=== PATIENT | male | born 1995 | race Caucasian/White ===

== ENCOUNTER 2021-10-29 12:33 | Emergency (ER) | payer OTHER, SELFPAY ==
[2021-10-29] VITALS (29 sets, daily range): BP systolic 101–146; BP diastolic 50–105; PULSE 90–130; RESP 14–27; TEMP 36.6; O2SAT 97–100
--- NOTE | 2021-10-29 13:08 | ED.ALCOHOL ---
HPI - Alcohol General Chief Complaint: Alcohol Stated Complaint: n/v Time Seen by Provider: 10/29/21 12:44 Source: patient, family and RN notes reviewed Mode of arrival: ambulatory Limitations: no limitations History of Present Illness HPI narrative: 26-year-old male presented to the emergency department for evaluation of nausea and vomiting after having excessive alcohol last night. Patient states he rarely drinks alcohol but last night had approximately 64 ounces of beer and other mixed drinks. Patient states he began developing nausea and vomiting and does have some epigastric burning. Patient denies any lower abdominal pain. Patient also reports he does have suicidal thoughts. Patient's he has had these previously but states he has no intent to act on them. Patient did make the statement I was feeling so sick I thought of killing myself, but I would not have done it. Patient denied any plan, and denied any intent of acting on these thoughts. Related Data Allergies Allergy/AdvReac Type Severity Reaction Status Date / Time Penicillins Allergy Rash Verified 10/29/21 12:45 Review of Systems Review of Systems: CONSTITUTIONAL: Denies fever, chills, or sweats. EYES: Denies visual changes, redness, or discharge. ENT: Denies rhinorrhea, congestion, sore throat, or otalgia. CARDIOVASCULAR: Denies chest pain, palpitations, or edema. RESPIRATORY: Denies cough or dyspnea. GASTROINTESTINAL: See HPI GENITOURINARY: Denies dysuria or hematuria. SKIN: Denies rash or itching. MUSCULOSKELETAL: Denies back pain, joint pain, or myalgia. NEUROLOGIC: Denies headache, numbness, or weakness. PSYCHIATRIC: Does have anxiety and depression All systems reviewed & are unremarkable except as noted in HPI and below Exam Narrative: APPEARANCE: Well appearing, no pain, no distress, well-nourished. HEAD: normocephalic, atraumatic. EYES: PERRLA/EOMI, conjunctivae clear. NOSE: Normal no drainage THROAT: Pharynx clear, no exudate. NECK: Supple. No adenopathy, no masses. RESPIRATORY: Airway patent, respirations nonlabored. Clear to auscultation bilaterally, no rales, rhonchi, wheezing. CARDIOVASCULAR: Regular rate and rhythm without murmurs rubs or gallops. ABDOMINAL: Soft, nontender, nondistended, normal bowel sounds MUSCULOSKELETAL: Moves all extremities. Strength/ROM intact, No edema, No calf tenderness. NEURO: Alert. Cranial nerves II through XII intact. Grossly intact SKIN: Warm, dry. Normal Color PSYCHIATRIC: Normal affect/mood. Course Reevaluation(s) Reevaluation #1: Patient is medically cleared to be evaluated by the crisis counselor. Patient is also medically cleared for inpatient psychiatric placement as needed. Patient was evaluated by the crisis counselor and was deemed safe to go home with a safety agreement. Patient symptoms have improved and patient is tolerating p.o. Vital Signs Vital signs: Vital Signs Temperature 97.8 F 10/29/21 12:38 Pulse Rate 98 10/29/21 12:38 Respiratory Rate 20 10/29/21 12:38 Blood Pressure 116/50 L 10/29/21 12:38 Pulse Oximetry 100 10/29/21 12:38 Temperature 97.8 F 10/29/21 12:38 Pulse Rate 114 H 10/29/21 19:00 Respiratory Rate 18 10/29/21 19:00 Blood Pressure 101/85 10/29/21 19:00 Pulse Oximetry 100 10/29/21 19:00 MDM - Alcohol Lab Data Attestation: I reviewed the patient's lab results. Result diagrams: 10/29/21 12:55 10/29/21 12:55 Labs: Lab Results 10/29/21 10/29/21 10/29/21 Range/Units 12:55 12:55 12:55 WBC 23.3 H (4.5-10.0) K/mm3 RBC 5.04 (4.6-6.20) M/mm3 Hgb 15.9 (14.0-18.0) g/dL Hct 46.0 (42.0-52.0) % MCV 91.3 (80-100) fl MCH 31.5 (26-34) pg MCHC 34.6 (32-36) g/dl RDW 11.9 (11.5-14.5) % Plt Count 284 (150-375) k/mm3 MPV 11.0 H (7.4-10.4) fl Immature Gran % (Auto) 0.5 (0-0.5) % Neut % (Auto) 85.0 H (45.5-73.1) % Lymph % (Auto) 7.8 L (18.3-44.2) % Lane % (Au
[2021-10-29 13:10] LABS: Basophils Absolute Auto 0.1 K/mm3 (0.0-0.1); Basophils Percent Auto 0.4 % (0.2-1.2); Hemoglobin 15.9 g/dL (14.0-18.0); Immature Granulocyte Absolute 0.11 K/mm3 (0.00-0.031); Immature Granulocyte Percent A 0.5 % (0-0.5); Lymphocytes Absolute Auto 1.82 K/mm3 (0.9-3.2); Lymphocytes Percent Auto 7.8 % (18.3-44.2); Mean Corpuscular HGB Conc 34.6 g/dl (32-36); Mean Corpuscular Hemoglobin 31.5 pg (26-34); Mean Corpuscular Volume 91.3 fl (80-100); Monocytes Absolute Auto 1.5 K/mm3 (0.1-0.6); Monocytes Percent Auto 6.3 % (2.6-8.5); Neutrophils Absolute Auto 19.8 K/mm3 (1.3-6.7); Platelet Count Result 284 k/mm3 (150-375); Red Blood Count 5.04 M/mm3 (4.6-6.20); Red Cell Distribution Width 11.9 % (11.5-14.5); White Blood Count 23.3 K/mm3 (4.5-10.0)
[2021-10-29 13:26] LABS: Amphetamine Screen Urine Negative (Negative); Barbiturate Screen Urine Negative (Negative); Benzodiazepines Screen Urine Negative (Negative); Cannabinoid Screen Urine Negative (Negative); Cocaine Screen Urine Negative (Negative); Methadone Screen Urine Negative (Negative); Opiate Screen Urine Negative (Negative); Phencyclidine Screen Urine Negative (Negative)
[2021-10-29 13:28] LABS: Albumin Level 5.6 g/dL (3.5-5.1); Alkaline Phosphatase 105 U/L (38-126); Anion Gap 25 mmol/L (8-16); Aspartate Amino Transferase 53 U/L (17-59); Bilirubin,Total 0.5 mg/dL (0.2-1.3); Blood Urea Nitrogen 22 mg/dL (9-20); Calcium 9.8 mg/dL (8.4-10.2); Carbon Dioxide 11 mmol/L (22-30); Chloride 105 mmol/L (98-107); Estimated CRCL calculation 91 ml/min; Estimated Glomerular Filt Rate > 60; Glucose 84 mg/dL (65-110); Lipase 58 U/L (23-300); Sodium 141 mmol/L (137-145)
[2021-10-29 13:31] LABS: Alanine Aminotransferase 53 U/L (4-50)
[2021-10-29 13:45] LABS: Acetaminophen < 10 ug/mL (10-30); Ethanol < 10 mg/dL (<10); Salicylate < 1.0 mg/dL (2-20)
[2021-10-29 13:56] LABS: Thyroid Stimulating Hormone 0.798 uIU/mL (0.465-4.680)
[2021-10-29] MEDS: SODIUM CHLORIDE 0.9% IV 1,000 ML 999 ML IV CONT ×2 (14:13→15:58)
[2021-10-29] MEDS: METOCLOPRAMIDE HCL INJ 10 MG/2 ML VIAL IV PUSH (14:14)
--- NOTE | 2021-10-29 14:17 | PC.NURSE ---
Per Dr. Guerra, he does not require patient to have a sitter at this time.
[2021-10-29 14:34] LABS: Appearance Urine Clear (Clear); Bilirubin Urine Negative (Negative); Blood Urine Negative (Negative); Color Urine Yellow (Yellow); Glucose Urine UA Negative (Negative); Ketones Urine 4+ mg/dL (Negative); Leukocyte Esterase Ur Negative LEU/UL (Negative); Nitrate Urine Negative (Negative); Protein Urine 1+ mg/dL (Negative); Specific Grav Ur >= 1.030 (1.001-1.035); Urobilinogen Urine 0.2 mg/dL (<2.0); pH Urine 5.5 (5.0-9.0)
[2021-10-29 14:43] LABS: Add Urine Microscopic? YES; Mucus Urine Rare /lpf; RBC Urine 0-2 /hpf (0-2); WBC Urine 0-3 /hpf
[2021-10-29 14:55] LABS: Magnesium 1.8 mg/dL (1.6-2.3)
--- NOTE | 2021-10-29 16:03 | PC.NURSE ---
Crisis called regarding PT. PT currently watching tv in room and watching his phone. Denies SI at the moment. PT pleasant and cooperative.
--- NOTE | 2021-10-29 17:49 | PC.NURSE ---
pt AT BEDSIDE. pt STATES HE DOES NOT HAVE A PLAN TO COMMIT HIMSELF AND CURRENTLY DOES NOT HAVE THOUGHTS OF HURTING HIMSELF.
== END 2021-10-29 19:18 | disposition home or self-care (01) ==
PROVIDERS: Emergency Provider Emergency Medicine
DX: F10.120 Alcohol abuse with intoxication, uncomplicated (principal); Y90.0 Blood alcohol level of less than 20 mg/100 ml; F32.89 Other specified depressive episodes
CPT/HCPCS: 36415; 80053; 80307; 81001; 83690; 83735; 84443; 85025; 96361; 96374; 99284; J2765; J7030

== ENCOUNTER 2024-09-13 12:55 | Emergency (ER) | payer OTHER, SELFPAY ==
--- NOTE | ~2024-09-13 | XR_ITS ---
XR hand LT min 3V Ordering provider: Dominique Patricia PA-C History: . 1st digit dog bite, SWELLING AND PAIN . Comparison: None. FINDINGS: BONES: No acute fracture or dislocation. JOINT SPACES: Well maintained. SOFT TISSUES: Soft tissue swelling in the thenar and hypothenar eminences. IMPRESSION: No acute osseous abnormality left hand. Reviewed, dictated and finalized at location A.
[2024-09-13 13:05] VITALS: BP 118/76; PULSE 76; RESP 18; TEMP 36.6; O2SAT 100
--- OUTSIDE RECORDS SUMMARY | 2024-09-13 13:30 | XMS_ITS | Clinical Summary ---
Author Organization [facility] Care Team Providers Care Twist Maker Name Role Phone Unavailable Primary Care Provider Unavailabl e Social History Tobacco Use Types Packs/Day Years Used Date Smoking Tobacco: Never Assessed Sex and Gender Information Value Date Recorded Sex Assigned at Not on file Legal Sex Male 1:59 PM [employer] Gender Identity Not on file Sexual Orientation Not on file Plan of Treatment Health Maintenance Due Date Last Done Comments Hepatitis C Virus (HCV) Screening 1996 TdaP Immunization 1996 Hepatitis B Immunization (1 of 3 - 19+ 3-dose series) 02/16/2015 Influenza Immunization (#1) 2024 SARS-COV-2 Immunization ( - 2023- season) 2024 Respiratory Syncytial Virus (RSV) Immunization (Adult) (1 - 1-dose 75+ series) 02/16/2071 Meningococcal Immunization (ACWY) Aged Out No longer eligible based on patient's age to complete this topic Pneumococcal Immunization Combined Aged Out No longer eligible based on patient's age to complete this topic Rotavirus Immunization Aged Out No lo nger eligible based on patient's age to complete this topic
--- OUTSIDE RECORDS SUMMARY | 2024-09-13 13:30 | XMS_ITS | Continuity of Care Document ---
Author Name [facility] Organization [facility] Care Team Providers Care Microsoft Exchange Architect Name Role Phone [facility] Unavailable Unavailable Problems Combined list of problems from Department of Defense and Veterans Affairs facilities. It does not include entries that were removed or entered in error. Problem Status Onset Date Problem Type Date of Resolution Comments Source Preoperative state Active 5 Diagnosis 005- [facility] Full examination performed Active 4 Diagnosis 0055C- [facility] Tinea pedis Active 4 Diagnosis 0055C- [facility] Pain of left calf Active 4 Diagnosis 0055C- [facility] Injury of left Achilles tendon Active 4 Diagnosis 0055C- [facility] Acute rupture of Achilles tendon Active 4 Diagnosis 005- [facility] Pain in calf Active 4 Diagnosis 005- [facility] Generalized anxiety disorder Active 4 Diagnosis 0055C- [facility] Regular astigmatism, bilateral Active 4 Diagnosis 005- [facility] Myopia, bilateral Active 4 Diagnosis 0055C- [facility] Myopia Active Condition Unknown Organization Regular astigmatism, bilateral Active Condition - [facility] Generalized anxiety disorder Active Condition 005- [facility] Strain of other muscle(s) and tendon(s) of posterior muscle group at lower leg level, left leg, sequela Active Condition - [facility] Medications Combined list of outpatient medications from Department of Defense and Veterans Affairs facilities.Medications provided include 1) outpatient medications from the last 15 months, and 2) patient-reported medications. Medication Details Route Status Patient Instructions Prescription Expires Prescription Number Last Dispense Date Ordering Provider Order Date Order Qty Source acetaminoph en 325 mg oral tablet 2 tab(s), Oral, every 6 hr, PRN pain or fever, # 50 tab(s), 0 total refill(s ), Acute, 01/24/24 10:33:10 AM CDT, Pharmacy : [facility] Oral (given by mouth) Discont inued 01/24/20242023 50.0 0055C-[address] [place], [place] [address]Trevor Tatum acetaminoph en 500 mg oral tablet 2 tab(s), Oral, every 6 hr, PRN pain or fever, # 100 tab(s), 0 total refill(s ), Acute, 03/25/24 12:00:00 AM CDT, Pharmacy : [facility] #[id number] Oral (given by mouth) Complet ed 03/25/20242023 100.0 [facility] Daily-Bing Men's Formula oral tablet Oral, Daily, 0 total refill(s ), Maintena nce Oral (given by mouth) Ordered 2023 [facility] escitalopra m 10 mg oral tablet TAKE ONE AND ONE-HALF TABLETS BY MOUTH DAILY, # 135 EA, 1 total refill(s ), Acute Discont inued 01/27/2023 3 2022 135.0 Ambulat ory Pharmac y escitalopra m 10 mg oral tablet TAKE ONE AND ONE-HALF TABLETS BY MOUTH DAILY, Oral, Daily, Take 1.5 tab daily for daily dose of Lexapro 15mg daily, # 135 EA, 3 total refill(s ), Maintena nce, Pharmacy : [facility] Oral (given by mouth) Discont inued 03/11/2024 4 2023 135.0 0055C-[address] [place] [address] Rc escitalopra m 5 mg oral tablet 30 tab(s), 0 total refill(s ), Soft Stop Complet ed 12/15/20222022 0055C-[address] [place], [place] [address]Trevor Tatum ibuprofen 600 mg oral tablet 1 tab(s), Oral, every 6 hr, # 40 tab(s), 0 total refill(s ), Acute, 01/24/24 10:33:10 AM CDT, Pharmacy : [facility] Oral (given by mouth) Discont inued 01/24/20242023 40.0 [address]55C[facility] DONNA [facility]atum ibuprofen 600 mg oral tablet 1 tab(s), Oral, every 6 hr, # 40 tab(s), 0 total refill(s ), Acute, 03/25/24 12:00:00 AM CDT, Pharmacy : [facility] #[id number] Oral (given by mouth) Complet ed 03/25/20242023 40.0 0055C[facility] DONNA Tatum Lexapro 10 mg oral tablet See Instruct ions, TAKE ONE AND ONE-HALF TABLETS BY MOUTH DAILY, # 135 tab(s), 3 total refill(s ), Maintena nce, Pharmacy : [facility] #[id number] Ordered 2023 135.0 0055C[address] DONNA Tatum Lexapro 10 mg oral tablet See Instruct ions, TAKE ONE AND ONE-HALF TABLETS BY MOUTH DAILY, # 135 tab(s), 3 total refill(s ), Hard Stop, Pharmacy : [facility] Complet ed 06/17/2024 2023 135.0 0055C-[address] DONNA [facility]atum Allergies, Adverse Reactions, Alerts Combined list of allergies from Department of Defense and Veterans Affairs facilities. It does not include entries that were removed or entered in error. Substance Category Reaction Severity Reaction type Status Date Reported Comments Source penicillins Drug allergy Urticaria (Hives) Mild Active 5 hives/inf ant Ambulatory Pharmacy Immunizations Combined list of available immunizations from the Department of Defense and Veterans Affairs facilities. Immunization Series Date Given Administered By Site Reaction Lot Number CVX Code Drug Transplanter Status Comments Source influenza, injectable, quadrivalent- pf 2022 150 GlaxoSmithKli ne complet ed influenza , injectabl e, quadrival ent-pf 04/19/23 Given Ambulat ory Pharmac y influenza, injectable, quadrivalent- pf 2021 [id number] 150 GlaxoSmithKli ne complet ed influenza , injectabl e, quadrival ent-pf 05/26/22 Given Ambulat ory Pharmac y influenza, injectable, quadrivalent- pf 2021 [id number] 150 GlaxoSmithKli ne complet ed influenza , injectabl e, quadrival ent-pf 05/26/22 Given Ambulat ory Pharmac y influenza, injectable, quadrivalent 2020 [id number] 158 GlaxoSmithKli ne complet ed influenza , injectabl e, quadrival ent 04/06/21 Given Ambulat ory Pharmac y influenza, injectable, quadrivalent 2020 [id number] 158 GlaxoSmithKli ne complet ed influenza , injectabl e, quadrival ent 04/06/21 Given Ambulat ory Pharmac y COVID Vaccine Moderna 2020 [id number] 207 complet ed COVID Vaccine Moderna 11/14/20 Given Ambulat ory Pharmac y COVID Vaccine Moderna 2020 [id number] 207 complet ed COVID Vaccine Moderna 11/14/20 Given Ambulat ory Pharmac y COVID Vaccine Moderna 2020 [id number] 207 complet ed COVID Vaccine Moderna 10/17/20 Given Ambulat ory Pharmac y COVID Vaccine Moderna 2020 [id number] 207 complet ed COVID Vaccine Moderna 10/17/20 Given Ambulat ory Pharmac y tuberculin purified protein derivative 2020 96 complet ed tuberculi n purified protein derivativ e 07/27/20 Given Ambulat ory Pharmac y tuberculin purified protein derivative 2020 96 complet ed tuberculi n purified protein derivativ e 07/27/20 Given Ambulat ory Pharmac y tuberculin purified protein derivative 2020 [id number] 96 complet ed tuberculi n purified protein derivativ e 07/24/20 Given Ambulat ory Pharmac y tuberculin purified protein derivative 2020 SAMANTHAMROMP ALSKI [id number] 96 complet ed Result Comment: Route: Unknown Manufactu rer: OTH ([facility]) 0055C-[facility] tuberculin purified protein derivative 2020 [id number] 96 sanofi pasteur complet ed tuberculi n purified protein derivativ e 07/06/20 Given Ambulat ory Pharmac y tuberculin purified protein derivative 2020 [id number] 96 sanofi pasteur complet ed tuberculi n purified protein derivativ e 07/06/20 Given Ambulat ory Pharmac y influenza virus vaccine, inactivated 2019 [id number] 88 Seqirus complet ed influenza virus vaccine, inactivat ed 04/24/20 Given Ambulat ory Pharmac y influenza virus vaccine, inactivated 2019 [id number] 88 Seqirus complet ed influenza virus vaccine, inactivat ed 04/24/20 Given Ambulat ory Pharmac y influenza, injectable, quadrivalent- pf 2018 [id number] 150 Seqirus complet ed influenza , injectabl e, quadrival ent-pf 04/10/19 Given Ambulat ory Pharmac y influenza, injectable, quadrivalent- pf 2018 [id number] 150 Seqirus complet ed influenza , injectabl e, quadrival ent-pf 04/10/19 Given Ambulat ory Pharmac y influenza, injectable, quadrivalent- pf 2017 [id number] 150 GlaxoSmithKli ne complet ed influenza , injectabl e, quadrival ent-pf 03/27/18 Given Ambulat ory Pharmac y influenza, injectable, quadrivalent- pf 2017 [id number] 150 GlaxoSmithKli ne complet ed influenza , injectabl e, quadrival ent-pf 03/27/18 Given Ambulat ory Pharmac y anthrax vaccine 2017 [id number] 24 Emergent [employer]olutions complet ed anthrax vaccine 03/14/18 Given Ambulat ory Pharmac y anthrax vaccine 2017 [id number] 24 [employer] complet ed anthrax vaccine 03/14/18 Given Ambulat ory Pharmac y anthrax vaccine 2017 [id number] 24 [employer] complet ed anthrax vaccine 10/05/17 Given Ambulat ory Pharmac y anthrax vaccine 2017 [id number] 24 [employer] complet ed anthrax vaccine 10/05/17 Given Ambulat ory Pharmac y influenza, injectable, quadrivalent- pf 2016 [id number] 150 GlaxoSmithKli ne complet ed influenza , injectabl e, quadrival ent-pf 03/23/17 Given Ambulat ory Pharmac y influenza, injectable, quadrivalent- pf 2016 [id number] 150 GlaxoSmithKli ne complet ed influenza , injectabl e, quadrival ent-pf 03/23/17 Given Ambulat ory Pharmac y Human Papillomaviru s 9-valent vaccine 2016 [id number] 165 Merck [employer] B[employer]ul [employer] complet ed Human Papilloma virus 9-valent vaccine 11/15/16 Given Ambulat ory Pharmac y Human Papillomaviru s 9-valent vaccine 2016 [id number] 165 [employer] complet ed Human Papilloma virus 9-valent vaccine 11/15/16 Given Ambulat ory Pharmac y vaccinia (smallpox) vaccine 2016 VV03-01 9-C 75 sanofi pasteur complet ed vaccinia (smallpox ) vaccine 11/14/16 Given Ambulat ory Pharmac y vaccinia (smallpox) vaccine 2016 VV03-01 9-C 75 sanofi pasteur complet ed vaccinia (smallpox ) vaccine 11/14/16 Given Ambulat ory Pharmac y typhoid Vi capsular polysaccharid e vac 2016 [id number] 101 sanofi pasteur complet ed typhoid Vi capsular polysacch aride vac 11/11/16 Given Ambulat ory Pharmac y Gibraltarian Encephalitis IM 2016 [id number] 9E 134 Valneva complet ed Gibraltarian Encephali tis IM 11/11/16 Given Ambulat ory Pharmac y anthrax vaccine 2016 [id number] 24 Emergent [employer] complet ed anthrax vaccine 11/11/16 Given Ambulat ory Pharmac y typhoid Vi capsular polysaccharid e vac 2016 [id number] 101 sanofi pasteur complet ed typhoid Vi capsular polysacch aride vac 11/11/16 Given Ambulat ory Pharmac y anthrax vaccine 2016 [id number] 24 [employer] complet ed anthrax vaccine 11/11/16 Given Ambulat ory Pharmac y Gibraltarian Encephalitis IM 2016 [id number] 9E 134 Valneva complet ed Gibraltarian Encephali tis IM 11/11/16 Given Ambulat ory Pharmac y influenza, injectable, quadrivalent 2015 [id number] 158 GlaxoSmithKli ne complet ed influenza , injectabl e, quadrival ent 03/29/16 Given Ambulat ory Pharmac y influenza, injectable, quadrivalent 2015 [id number] 158 GlaxoSmithKli ne complet ed influenza , injectabl e, quadrival ent 03/29/16 Given Ambulat ory Pharmac y hepatitis A-hepatitis B vaccine 2015 [id number] 104 GlaxoSmithKli ne complet ed hepatitis A-hepatit is B vaccine 07/22/15 Given Ambulat ory Pharmac y hepatitis A-hepatitis B vaccine 2015 [id number] 104 GlaxoSmithKli ne complet ed hepatitis A-hepatit is B vaccine 07/22/15 Given Ambulat ory Pharmac y hepatitis A-hepatitis B vaccine 2015 [id number] 104 GlaxoSmithKli ne complet ed hepatitis A-hepatit is B vaccine 07/22/15 Given Ambulat ory Pharmac y influenza, seasonal, injectable-pf 2014 [id number] 140 GlaxoSmithKli ne complet ed influenza , seasonal, injectabl e-pf 04/03/15 Given Ambulat ory Pharmac y influenza, seasonal, injectable-pf 2014 [id number] 140 GlaxoSmithKli ne complet ed influenza , seasonal, injectabl e-pf 04/03/15 Given Ambulat ory Pharmac y hepatitis A-hepatitis B vaccine 2014 [id number] 104 GlaxoSmithKli ne complet ed hepatitis A-hepatit is B vaccine 01/12/15 Given Ambulat ory Pharmac y hepatitis A-hepatitis B vaccine 2014 [id number] 104 GlaxoSmithKli ne complet ed hepatitis A-hepatit is B vaccine 01/12/15 Given Ambulat ory Pharmac y hepatitis A-hepatitis B vaccine 2014 [id number] 104 GlaxoSmithKli ne complet ed hepatitis A-hepatit is B vaccine 12/03/14 Given Ambulat ory Pharmac y hepatitis A-hepatitis B vaccine 2014 [id number] 104 GlaxoSmithKli ne complet ed hepatitis A-hepatit is B vaccine 12/03/14 Given Ambulat ory Pharmac y hepatitis A-hepatitis B vaccine 2014 [id number] 104 GlaxoSmithKli ne complet ed hepatitis A-hepatit is B vaccine 12/03/14 Given Ambulat ory Pharmac y tetanus, diphtheria, acellular pertu is 2014 [id number] 115 GlaxoSmithKli ne complet ed tetanus, diphtheri a, acellular pertussis 11/27/14 Given Ambulat ory Pharmac y meningococcal A,C,Y,W-135 (MCV4P) 2014 [id number] 114 sanofi pasteur complet ed meningoco ccal A,C,Y,W-1 35 (MCV4P) 11/27/14 Given Ambulat ory Pharmac y influenza, injectable, quadrivalent- pf 2014 [id number] 150 GlaxoSmithKli ne complet ed influenza , injectabl e, quadrival ent-pf 11/27/14 Given Ambulat ory Pharmac y poliovirus vaccine, inactivated 2014 [id number] 10 sanofi pasteur complet ed polioviru s vaccine, inactivat ed 11/27/14 Given Ambulat ory Pharmac y adenovirus vaccine, live 2014 [id number] 7 143 Teva Pharmaceutica ls complet ed adenoviru s vaccine, live 11/27/14 Given Ambulat ory Pharmac y tetanus, diphtheria, acellular pertu is 2014 [id number] 115 GlaxoSmithKli ne complet ed tetanus, diphtheri a, acellular pertussis 11/27/14 Given Ambulat ory Pharmac y poliovirus vaccine, inactivated 2014 [id number] 10 sanofi pasteur complet ed polioviru s vaccine, inactivat ed 11/27/14 Given Ambulat ory Pharmac y influenza, injectable, quadrivalent- pf 2014 [id number] 150 GlaxoSmithKli ne complet ed influenza , injectabl e, quadrival ent-pf 11/27/14 Given Ambulat ory Pharmac y adenovirus vaccine, live 2014 [id number] 7 143 Teva Pharmaceutica ls complet ed adenoviru s vaccine, live 11/27/14 Given Ambulat ory Pharmac y meningococcal A,C,Y,W-135 (MCV4P) 2014 [id number] 114 sanofi pasteur complet ed meningoco ccal A,C,Y,W-1 35 (MCV4P) 11/27/14 Given Ambulat ory Pharmac y tuberculin purified protein derivative 2014 [id number] 96 sanofi pasteur complet ed tuberculi n purified protein derivativ e 11/27/14 Given Ambulat ory Pharmac y tuberculin purified protein derivative 2014 [id number] 96 sanofi pasteur complet ed tuberculi n purified protein derivativ e 11/27/14 Given Ambulat ory Pharmac y Results Combined list of recent chemistry, hematology and other laboratory results from Department of Defense and Veterans Affairs, ranging from 15 months to all on record, depending upon the facility. Order Name Results Value Reference Range Date Interpretation Specimen Comments Source Infectious Disease HIV-1/O/ 2 Non-Re active 1 ( 11:38 AM) 01/17 N Interpretive Data: INTERPRETATIO N: This method is a screening procedure for the detection of HIV p24 Antigen and Antibodies to HIV-1, including Group O, and/or HIV-2. NON-REACTIVE: HIV-1 antigen and HIV-1 / HIV-2 antibodies were not detected. No laboratory evidence of HIV infection. A negative test result does not exclude the possibility of exposure to or infection with HIV. HIV antibodies and/or p24 antigen may be undetectable in some stages of the infection and in some clinical conditions. If acute HIV infection is suspected, consider submitting another specimen to a reference laboratory for HIV-1 RNA. SCREEN REACTIVE - CONFIRMATION TO FOLLOW: Possible presence of HIV-1antibodi es, HIV-2 antibodies and/or HIV-1 p24 antigen. Specimen will reflex to the confirmation testing that fulfills the Center for Disease Control and Prevention's HIV diagnostic algorithm. Refer to [facility] Lab Guide for additional information: [email or web address] aspx Testing performed by [employer]. [id number] [facility] EPILAB Encounters Combined list of: 1) Encounters from Department of Veterans Affairs facilities going backup to the last 18 months, not all VA inpatient encounters are included; 2) Encounters from the Department of Defense facilities going backup to 280 months. Location Location Details Encounter Type Encounter Number Reason For Visit Attending Provider ADM Date DC Date Status [id number] Dis[facility] Disposition: Home or Self Care [id number] Discharge Disposition: Home or Self Care [facility] [id number] Regular astigma tism, maxime al,Myovidal sanchez, maxime Ortiz LBNGHIA 06/07 Discharge Disposition: Home or Self Care [address] [place] [address] [facility] [id number] Pain in unspeci fied lower leg,Str ain of unspeci fied Jonathan s tendon, initial encount er,Enco unter for general adult medical examina tion without abnorma l finding s,Tinea pedis,G enerali zed anxiety disorde r,Pain in left lower leg,Uns pecifie d injury of left Lawrence s tendon, initial enc[facility] Discharge Disposition: Home or Self Care [address] [place] [address] [facility] [id number] Encount er for other preproc edural examina tion JJ AVILA 08/15 Discharge Disposition: Home or Self Care [address] [place] [address] Procedures Combined list of: 1) Procedures from Department of Veterans Affairs facilities [facility], not all [place] non-surgical procedures are included; 2) All procedures from the Department of Defense facilities. Procedure Procedure Type Code Date Perfomer Comments [facility] Tonsillectomy and adenoidectomy; age 12 or over Tonsillectomy and adenoidectomy; age 12 or over [id number] 06/26/[id number] Social History Combined list of available smoking, tobacco, and other social history from Department of Defense and Veterans Affairs facilities. Social History Type Response Date Comment [facility] Sex Representation Male 08/30/2022 Unknow n Organization Tobacco Frequent/Daily expos ure to secondhand smoke in indoor/confined spaces No. Cigarette use: Former-cigarette user. Other Tobacco use: Never-other tobacco user (not cigarettes). Ambulatory Pharmacy Sexual Orientation Ambula tory Pharmacy Gender identity Ambulator y Pharmacy Assessment and Plan Combined list of future care activities from Department of Defense and Veterans Affairs facilities (e.g., assessment and plan notes, appointments, orders, and referrals). Additional future care activities may be listed in the Plan of Care section. Result Assessment and Plan Date Source Assessment and Plan Extracted from:Title : Optometry- CRS workup Author: JJ AREVALO OD, Optometry Date: 08/15/24 1. P reoperative state Patient appears to be good candidate for CRS. Discussed RBA of CRS with patient and explained procedures and performed all workup testing. Patient given a pplication to submit to surgical center of choice. Patient wanting to travel to [facility]. I nstructed to c ontact clinic a fter surgery to ensure profile, order meds if necessary, and schedule 1 month post-op. Patient acknowledges all, all questions answered. Instructed to remain out of CLs until surgery scheduled. If not a candidate at surgical site, maintain annual exams with optometry. Good ocular health today with dilation; pt educated on exam findings without further questions. ? 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 JJ AREVALO, Lt Col, OD [employer] [place], [place] Extracted from:Title: Virt Appt Author: [facility]AN [facility] Date: 06/17/24 1. 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 P ain in calf p reviously established with [facility] in [place] f or left calf pain DOI: 2016 per patient, had calf muscle tear, requires intermittent physical therapy 29yo male, SFS, calf muscle tear/Achilles tendon i njury, requires intermittent physical therapy. For continuity of care send to [facility] in [place], [place] A ddress: [phone] [facility] [address], [place] [address] . Eval/treat/follow. thanks. 3. A cute rupture of Achilles tendon 4. F ull examination performed p t requests lipid panel, brother has hyperlipidemia he will book virt appt t o review results Ordered: Lipid Panel 5. T inea pedis w ax/wane tinea pedis, ketoconazole controlls flare ups most of the time not currently in a flare up plan: OTC f oot powder, trial OTC terbinafine use until athletes foot resolves and then for 10 days after, d/c ketoconazole PRAP Disposition: continue with arming Aeromedical Disposition: n/a Tuan Vital, Capt, [employer], BS Aeromedical Physician [employer] [facility] [place], [place] Orders: escitalopram(Lexapro 10 mg oral tablet), See Instructions, TAKE ONE AND ONE-HALF TABLETS BY MOUTH DAILY, # 135 tab(s), 3 total refill(s), Maintenance, TAKE ONE AND ONE-HALF TABLETS BY MOUTH DAILY, Pharmacy: [facility] #[id number] [External Rx] Referral Request 2.0 - DoD Extracted from:Title: Optometry- CEE Author: JJ AREVALO, OD Date: 06/07/24 1. M yopia, bilateral S pectacle rx released today. Final rx = [facility]. Below glasses ordered in SRTS. Discussed adaptation time to new lenses and proper wear. Discussed 2 pair requirement (DOD).? Measurements of anatomical facial characteristics and laboratory specifications were taken for glasses and final adjustment was made to the visual axes and anatomical topography of the patient at patients request upon delivery. OD: -2.50-0.85c009 OS: -2.25-1.98z353 pd:59 [id number] New Contact lens rx given today. Discussed proper wear/care of lenses. Instructed hand washing, not sleeping/showering/swimming in lenses and correct solutions. Discussed improper wear can lead to permanent vision loss. Replacement time: 2 weeks Acuvue Oasys for Astigmatism 8.6/14.5 OD: -2.50-0.34t600 OIS: -2.50-0.72m983 Patient appears to be a good candidate for corneal refractive surgery. Patient was emailed the application, [facility] to return the paperwork once (s)he obtains CC authorization and complete forms. - Once finished, p t edu to retun to [facility]. Angie perry will be scheduled with provider for completion of testing to include pentacam and dilation. Pt needs to be out of Cls x 2 weeks prior to returning. A ll questions answered to include [employer] specific process and r/b/a of surgery. Good ocular health today undilated; pt educated on exam findings without further questions. Recommend dilated eye exam a t CRS workup. 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 JJ AREVALO, Lt Col, OD [employer], [place] 2. R egular astigmatism, bilateral Ordered: Determination Refractive State [id number]; 06/07/2024 10:27:00 LIME SLAKER ? Rx+Fitg C-Lens Supvj Crnl Lens Ou Xcpt Aphk [id number]; 06/07/2024 10:27:00 LIME SLAKER ? Fitting Spectacles Xcpt Aphakia Monofocal [id number]; 06/07/2024 10:27:00 LIME SLAKER ? 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 - SM states wakes every am and unable to eat firts thing in the am. Routine Health Maintenance: 1. Lipid profile: P rior lipids done. Date of lipid panel a nd LDL, HDL, Total = 07/06/2020, LDL: 69 HDL: 64 Total: 144 2. HgbA1c (Diabetes) screening: P rior HgbA1c done. Date of lab and HgbA1c= 11/30/2021, 4.9% 2. G eneralized anxiety disorder Lexapro 3. T innitus SM c/o ringing in the ears Laterality: B ilateral a lternates ears intermitently Able to perform occupational duties still: Y es Associated hearing loss N o Counseled on the importance of h earing protection and minimizing use of loud noise and/or headphones/ear buds Advised t o follow up in the clinic for further evaluation Advised to go to the ER if sudden worsening or any associated pain. Disposition: P FARAH Cleared PHA Type: Non-Fly Qualification: W orld Wide Qualified Profile: N one IMR Status: Green Waivers: None Arming Status: S ervice member arms Reviewed health services director's PHAQ and EHR for the past twelve months t o include r eported height, weight, current medical conditions and deployment related health problems, traumatic brain injury screening, m edications, allergies, i mmunizations, medical readiness laboratory tests and occupational health records. Completed screenings and provided patient education as appropriate. MHA completed in ASIMS and copied to this record. Child Life Specialist is aware of services available (911, [phone], One source, [facility], Conservation Worker, B , , embedded squadron resources, e mergency room, first shirt or others in wendi of command, etc) and how to contact them if needed. Child Life Specialist denies suicidal and homicidal ideation. Preventative services reviewed and discussed per age, race, and gender. Reviewed immunization history and assessed immunization status. Reviewed physical activity, s exual risk factors and previous STD testing date, including HIV. Reviewed readiness labs and occupational health examinations required. Compared medications reported by Child Life Specialist to active medication list in MHSG/JLV and any variances were reconciled. Time spent in pt care, counseling and reviewing chart was approximately 2 0min. Patient informed PHA complete and ASIMS updated. Any complaints or issues identified while conducting the PHA have been addressed and/or the health services director was instructed to return to their PCM for care. //SIGNED// MAJ Yves, [employer], BSC Aerospace Medicine PATrevorC, BHS/MPAS [facility] Phase 2 Medical Readiness Cell Extracted from:Title: Ambulatory Patient Education Author: LASHAUN WALTER PA Date: 12/15/22 Gastrocnemius Tear (Calf Strain) Gastrocnemius tear is an injury to the calf muscle. This injury may include overstretching of the muscle or a partial or complete tear. This is a common sports injury. Calf muscle tears usually occur near the back of the knee. This often causes sudden pain and muscle weakness. What are the causes? This condition is caused by forceful stretching or strain on the calf muscle. This usually happens when you forcefully push off of your foot. It may also happen if you forcefully straighten your knee while your foot is flat on the ground. What increases the risk? The following factors may make you more likely to develop this condition: # Being male and older than age 40. # Playing sports that involve: Quick increases in speed and changes of direction, such as tennis and soccer. Jumping, such as basketball. Running, especially uphill or on uneven ground. Treatment (Summarized from UptoDate) Initial Treatment: Most calf strains can take up to 3 # 16 weeks to heal, depending on severity. Physical Therapy can help with the recovery. We can put in a referral for you if desired. At any time, follow up for any new/worsening symptoms or if not improving. Goal is rest until you can walk without a limp. This may be with crutches, walking boot, and/or heel lifts. Ice the area 4x day for 20 minutes until swelling subsides. Motrin (ibuprofen) 200-800mg 3x day with meals (max of 2400mg/day). Tylenol (acetaminophen) 325mg 1-2 tabs every 6 hours as needed on top (max 8 tabs daily). o These medications can be picked up at our pharmacy without a prescription as they are available from our over the counter supply. Compression sleeve worn over the calf. Can use an Miguel Angel wrap instead of a compression sleeve. (Start the Miguel Angel wrap from the ankle side and wrap upward to the knee) At One Week (or sooner depending on progress): After a week, if possible stop using crutches, switch to the heel lifts instead. Continue wearing compression sleeve/miguel angel wrap with activity, and continue icing 4x day for 20mins until swelling subsides. Once you can walk without a limp, start taking a walk 3x day for 10 minutes at a time. Once you can perform a heel raise (standing on your bridge of your foot) on both legs without pain, start doing that regularly o 5-8 reps with knees bent, then repeating this with the knees straight o Gradually increase to perform 3 sets of 15 reps with knees straight, and then repeat it with knees bent. Ideally avoid stretching exercises during recovery as they can exacerbate the injury. Gentle massage and gentle non-weight bearing range of motion is okay. At Three Weeks (or sooner depending on progress): Start eccentric heel drops as described in the below table. o Hang your heel over an edge (stair or step), and flex your foot down (so you are doing a heel lift and standing on the ball of your foot). Then slowly lower the heel until the heel is below the edge of the step. Raise yourself back up using the healthy foot or hand railings. Once you can do these heel drop exercises well (3 sets for 15 reps on one leg) you can begin an easy run every other day on a level surface for 15-20 mins max per session. o Additionally, can also do bicycle or stationary bicycle activity. At Six Weeks (or sooner depending on progress): Continue running for longer times and distances, but still on a level surface. o Recommend only adding 5 minutes increase in running time per session during a given week and no more than 1 additional running day each week. Ex) Week one: Ran 3x week for 20 minutes, Week two: Ran 4x week for 25 minutes. o Continue performing heel raise exercises as described in the table. Typically can be up to 8 # 12 weeks for return to full sports activity. Continue using compression sleeves and heel lifts during activity for the first 3 months after returning to the activity. Then can use it afterwards as needed. 1. Eccentric heel drop description a. Stand with the heel of the affected foot beyond the edge of the step or platform with the foot plantar flexed. Slowly lower the heel, bringing the foot into dorsiflexion. b. Perform the exercise both with the knee straight (gastrocnemius) and with the knee bent 45 degrees (soleus). c. Avoid concentric exercise by raising the foot back to the plantar flexed starting position using the unaffected foot, and hands if a railing is available. 2. Number of exercises a. Perform 3 sets of 15 repetitions with straight knees, then 3 sets of 15 repetitions with bent knees. b. Perform this cycle twice daily (180 drops/day). c. Continue the program 7 days per week for 12 to 24 weeks. 3. Exercise progression a. The exercises must be uncomfortable; when heel drops are no longer painful add weight by using a backpack, dumbbells, or a weight machine. Deven's intensive rehabilitation of Achilles tendinopathy Orthopedics Muscle Strain A muscle strain, or pulled muscle, happens when a muscle is stretched beyond its normal length. This can tear some muscle fibers and cause pain. Usually, it takes 1 2 weeks to heal from a muscle strain. Full healing normally takes 5 6 weeks. What are the causes? This condition is caused when a sudden force is placed on a muscle and stretches it too far. This can happen with a fall, while lifting, or during sports. What increases the risk? You are more likely to develop a muscle strain if you are an athlete or you do a lot of physical activity. What are the signs or symptoms? Pain. Tenderness. Bruising. Swelling. Trouble using the muscle. How is this treated? This condition is first treated with RICHARDSON therapy. This involves: Protecting your muscle from being injured again. Resting your injured muscle. Icing your injured muscle. Putting pressure (compression) on your injured muscle. This may be done with a splint or elastic bandage. Raising (elevating) your injured muscle. Your doctor may also recommend medicine for pain. Follow these instructions at home: If you have a splint that can be taken off: Wear the splint as told by your doctor. Take it off only as told by your doctor. Check the skin around the splint every day. Tell your doctor if you see problems. Loosen the splint if your fingers or toes: Tingle. Become numb. Turn cold and blue. Keep the splint clean. If the splint is not waterproof: Do not let it get wet. Cover it with a watertight covering when you take a bath or a shower. Managing pain, stiffness, and swelling If told, put ice on your injured area. To do this: If you have a removable splint, take it off as told by your doctor. Put ice in a plastic bag. Place a towel between your skin and the bag. Leave the ice on for 20 minutes, 2 3 times a day. Take off the ice if your skin turns bright red. This is very important. If you cannot feel pain, heat, or cold, you have a greater risk of damage to the area. Move your fingers or toes often. Raise the injured area above the level of your heart while you are sitting or lying down. Wear an elastic bandage as told by your doctor. Make sure it is not too tight. General instructions Take [id number] and prescription medicines only as told by your doctor. This may include: Medicines for pain and swelling that are taken by mouth or put on the skin. Medicines to help relax your muscles. Limit your activity. Rest your injured muscle as told by your doctor. Your doctor may say that gentle movements are okay. If physical therapy was prescribed, do exercises as told by your doctor. Do not put pressure on any part of the splint until it is fully hardened. This may take many hours. Do not smoke or use any products that contain nicotine or tobacco. If you need help quitting, ask your doctor. Ask your doctor when it is safe to drive if you have a splint. Keep all follow-up visits. How is this prevented? Warm up before you exercise. This helps to prevent more muscle strains. Contact a doctor if: You have more pain or swelling in the injured area. Get help right away if: You have any of these problems in your injured area: Numbness. Tingling. Less strength than normal. Summary A muscle strain is an injury that happens when a muscle is stretched beyond normal length. This condition is first treated with RICHARDSON therapy. This includes protecting, resting, icing, adding pressure, and raising your injury. Limit your activity. Rest your injured muscle as told by your doctor. Your doctor may say that gentle movements are okay. Warm up before you exercise. This helps to prevent more muscle strains. This information is not intended to replace advice given to you by your health care provider. Make sure you discuss any questions you have with your health care provider. Document Revised: 08/30/2021 Document Reviewed: 08/30/2021 Advanced Circulatory Patient Education 2021 [employer] Future Appointments Appointment Date: 10/07/2024 11:00:00 AM Scheduled Provider: Location: [id number] Appointment Type: Dental Visit Appointment Date: 10/15/2024 07:00:00 AM Scheduled Provider: LIANNA RIDER Location: [id number] Appointment Type: OPHT FTR Appointment Date: 10/15/2024 08:30:00 AM Scheduled Provider: LILI JAMES MD Location: [id number] Appointment Type: OPHT GRP Appointment Date: 11/19/2024 08:00:00 AM Scheduled Provider: JJ AREVALO OD, Optometry Location: [id number] Appointment Type: OPTO PROC Future Scheduled TestsLaboratoryLipid Panel 06/17/24 09/13/2024 [facility] Assessment and Plan Extracted from:Title : Optometry- CRS workup Author: JJ AREVALO OD, Optometry Date: 08/15/24 1. P reoperative state Patient appears to be good candidate for CRS. Discussed RBA of CRS with patient and explained procedures and performed all workup testing. Patient given a pplication to submit to surgical center of choice. Patient wanting to travel to [facility]. I nstructed to c ontact clinic a fter surgery to ensure profile, order meds if necessary, and schedule 1 month post-op. Patient acknowledges all, all questions answered. Instructed to remain out of CLs until surgery scheduled. If not a candidate at surgical site, maintain annual exams with optometry. Good ocular health today with dilation; pt educated on exam findings without further questions. ? 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 JJ AREVALO, Col, OD [employer] [place], [place] Extracted from:Title: Virt Appt Author: TUAN VITAL APA-C Date: 06/17/24 1. 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 P ain in calf p reviously established with [facility] in [place] f or left calf pain DOI: 2017 per patient, had calf muscle tear, requires intermittent physical therapy 29yo male, SFS, calf muscle tear/Achilles tendon i njury, requires intermittent physical therapy. For continuity of care send to [facility] in [place], [place] A ddress: [address], [place] [address] . Eval/treat/follow. thanks. 3. A cute rupture of Achilles tendon 4. F ull examination performed p t requests lipid panel, brother has hyperlipidemia he will book virt appt t o review results Ordered: Lipid Panel 5. T inea pedis w ax/wane tinea pedis, ketoconazole controlls flare ups most of the time not currently in a flare up plan: OTC f oot powder, trial OTC terbinafine use until athletes foot resolves and then for 10 days after, d/c ketoconazole PRAP Disposition: continue with arming Aeromedical Disposition: n/a Tuan Vital, Capt, [facility], [facility] [place] Aeromedical Physician [employer] [facility] [place], [place] Orders: escitalopram(Lexapro 10 mg oral tablet), See Instructions, TAKE ONE AND ONE-HALF TABLETS BY MOUTH DAILY, # 135 tab(s), 3 total refill(s), Maintenance, TAKE ONE AND ONE-HALF TABLETS BY MOUTH DAILY, Pharmacy: [facility] #[id number] [External Rx] Referral Request 2.0 - DoD Extracted from:Title: Optometry- CEE Author: JJ AREVALO, OD Date: 06/07/24 1. M yopia, bilateral S pectacle rx released today. Final rx = Manifest. Below glasses ordered in SRTS. Discussed adaptation time to new lenses and proper wear. Discussed 2 pair requirement (DOD).? Measurements of anatomical facial characteristics and laboratory specifications were taken for glasses and final adjustment was made to the visual axes and anatomical topography of the patient at patients request upon delivery. OD: -2.50-0.61h069 OS: -2.25-1.06j745 pd:59 [id number] New Contact lens rx given today. Discussed proper wear/care of lenses. Instructed hand washing, not sleeping/showering/swimming in lenses and correct solutions. Discussed improper wear can lead to permanent vision loss. Replacement time: 2 weeks Acuvue Oasys for Astigmatism 8.6/14.5 OD: -2.50-0.15c488 OIS: -2.50-0.73c327 Patient appears to be a good candidate for corneal refractive surgery. Patient was emailed the application, edu to return the paperwork once (s)he obtains CC authorization and complete forms. - Once finished, p t edu to retun to [facility] [employer]. M vicky will be scheduled with provider for completion of testing to include pentacam and dilation. Pt needs to be out of Cls x 2 weeks prior to returning. A ll questions answered to include [employer] specific process and r/b/a of surgery. Good ocular health today undilated; pt educated on exam findings without further questions. Recommend dilated eye exam a t CRS workup. 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 JJ AREVALO, Lt Col, OD [employer], [place] 2. R egular astigmatism, bilateral Ordered: Determination Refractive State [id number]; 06/07/2024 10:27:00 LIME SLAKER ? Rx+Fitg C-Lens Supvj Crnl Lens Ou Xcpt Aphk [id number]; 06/07/2024 10:27:00 LIME SLAKER ? Fitting Spectacles Xcpt Aphakia Monofocal [id number]; 06/07/2024 10:27:00 LIME SLAKER ? Ophthalmological Medical Xm&Eval Compre New Pt 1/> Vst [id number]; 06/07/2024 10:27:00 LIME SLAKER End of Orders Extracted from:Title: virtual mrc2 mha/pha Author: SERGE CHILDERS APA-C Date: 01/08/24 1. 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 - SM states wakes every am and unable to eat firts thing in the am. Routine Health Maintenance: 1. Lipid profile: P rior lipids done. Date of lipid panel a nd LDL, HDL, Total = 07/06/2020, LDL: 69 HDL: 64 Total: 144 2. HgbA1c (Diabetes) screening: Vidal cain HgbA1c done. Date of lab and HgbA1c= 11/30/2021, 4.9% 2. G eneralized anxiety disorder Lexapro 3. T innitus SM c/o ringing in the ears Laterality: B ilateral a lternates ears intermitently Able to perform occupational duties still: Y es Associated hearing loss N o Counseled on the importance of h earing protection and minimizing use of loud noise and/or headphones/ear buds Advised t o follow up in the clinic for further evaluation Advised to go to the ER if sudden worsening or any associated pain. Disposition: P FARAH Cleared PHA Type: Non-Fly Qualification: W orld Wide Qualified Profile: N one IMR Status: Green Waivers: None Arming Status: S ervice member arms Reviewed health services director's PHAQ and EHR for the past twelve months t o include r eported height, weight, current medical conditions and deployment related health problems, traumatic brain injury screening, m edications, allergies, i mmunizations, medical readiness laboratory tests and occupational health records. Completed screenings and provided patient education as appropriate. MHA completed in ASIMS and copied to this record. Child Life Specialist is aware of services available ([phone], One source, [facility], Conservation Worker, B H, , embedded squadron resources, e mergency room, first shirt or others [facility], etc) and how to contact them if needed. Child Life Specialist denies suicidal and homicidal ideation. Preventative services reviewed and discussed per age, race, and gender. Reviewed immunization history and assessed immunization status. Reviewed physical activity, s exual risk factors and previous STD testing date, including HIV. Reviewed readiness labs and occupational health examinations required. Compared medications reported by Child Life Specialist to active medication list in MHSG/JLV and any variances were reconciled. Time spent in pt care, counseling and reviewing chart was approximately 2 0min. Patient informed PHA complete and ASIMS updated. Any complaints or issues identified while conducting the PHA have been addressed and/or the health services director was instructed to return to their PCM for care. //SIGNED// MAJ Yves, LUPE, BSC Aerospace Medicine PAHenri, BHS/MPAS [facility] Phase 2 Medical Readiness Cell Extracted from:Title: Ambulatory Patient Education Author: LASHAUN WALTER PA Date: 12/15/22 Gastrocnemius Tear (Calf Strain) Gastrocnemius tear is an injury to the calf muscle. This injury may include overstretching of the muscle or a partial or complete tear. This is a common sports injury. Calf muscle tears usually occur near the back of the knee. This often causes sudden pain and muscle weakness. What are the causes? This condition is caused by forceful stretching or strain on the calf muscle. This usually happens when you forcefully push off of your foot. It may also happen if you forcefully straighten your knee while your foot is flat on the ground. What increases the risk? The following factors may make you more likely to develop this condition: # Being male and older than age 40. # Playing sports that involve: Quick increases in speed and changes of direction, such as tennis and soccer. Jumping, such as basketball. Running, especially uphill or on uneven ground. Treatment (Summarized from UptoDate) Initial Treatment: Most calf strains can take up to 3 # 16 weeks to heal, depending on severity. Physical Therapy can help with the recovery. We can put in a referral for you if desired. At any time, follow up for any new/worsening symptoms or if not improving. Goal is rest until you can walk without a limp. This may be with crutches, walking boot, and/or heel lifts. Ice the area 4x day for 20 minutes until swelling subsides. Motrin (ibuprofen) 200-800mg 3x day with meals (max of 2400mg/day). Tylenol (acetaminophen) 325mg 1-2 tabs every 6 hours as needed on top (max 8 tabs daily). o These medications can be picked up at our pharmacy without a prescription as they are available from our over the counter supply. Compression sleeve worn over the calf. Can use an Miguel Angel wrap instead of a compression sleeve. (Start the Miguel Angel wrap from the ankle side and wrap upward to the knee) At One Week (or sooner depending on progress): After a week, if possible stop using crutches, switch to the heel lifts instead. Continue wearing compression sleeve/miguel angel wrap with activity, and continue icing 4x day for 20mins until swelling subsides. Once you can walk without a limp, start taking a walk 3x day for 10 minutes at a time. Once you can perform a heel raise (standing on your bridge of your foot) on both legs without pain, start doing that regularly o 5-8 reps with knees bent, then repeating this with the knees straight o Gradually increase to perform 3 sets of 15 reps with knees straight, and then repeat it with knees bent. Ideally avoid stretching exercises during recovery as they can exacerbate the injury. Gentle massage and gentle non-weight bearing range of motion is okay. At Three Weeks (or sooner depending on progress): Start eccentric heel drops as described in the below table. o Hang your heel over an edge (stair or step), and flex your foot down (so you are doing a heel lift and standing on the ball of your foot). Then slowly lower the heel until the heel is below the edge of the step. Raise yourself back up using the healthy foot or hand railings. Once you can do these heel drop exercises well (3 sets for 15 reps on one leg) you can begin an easy run every other day on a level surface for 15-20 mins max per session. o Additionally, can also do bicycle or stationary bicycle activity. At Six Weeks (or sooner depending on progress): Continue running for longer times and distances, but still on a level surface. o Recommend only adding 5 minutes increase in running time per session during a given week and no more than 1 additional running day each week. Ex) Week one: Ran 3x week for 20 minutes, Week two: Ran 4x week for 25 minutes. o Continue performing heel raise exercises as described in the table. Typically can be up to 8 # 12 weeks for return to full sports activity. Continue using compression sleeves and heel lifts during activity for the first 3 months after returning to the activity. Then can use it afterwards as needed. 1. Eccentric heel drop description a. Stand with the heel of the affected foot beyond the edge of the step or platform with the foot plantar flexed. Slowly lower the heel, bringing the foot into dorsiflexion. b. Perform the exercise both with the knee straight (gastrocnemius) and with the knee bent 45 degrees (soleus). c. Avoid concentric exercise by raising the foot back to the plantar flexed starting position using the unaffected foot, and hands if a railing is available. 2. Number of exercises a. Perform 3 sets of 15 repetitions with straight knees, then 3 sets of 15 repetitions with bent knees. b. Perform this cycle twice daily (180 drops/day). c. Continue the program 7 days per week for 12 to 24 weeks. 3. Exercise progression a. The exercises must be uncomfortable; when heel drops are no longer painful add weight by using a backpack, dumbbells, or a weight machine. Deven intensive rehabilitation of Achilles tendinopathy Orthopedics Muscle Strain A muscle strain, or pulled muscle, happens when a muscle is stretched beyond its normal length. This can tear some muscle fibers and cause pain. Usually, it takes 1 2 weeks to heal from a muscle strain. Full healing normally takes 5 6 weeks. What are the causes? This condition is caused when a sudden force is placed on a muscle and stretches it too far. This can happen with a fall, while lifting, or during sports. What increases the risk? You are more likely to develop a muscle strain if you are an athlete or you do a lot of physical activity. What are the signs or symptoms? Pain. Tenderness. Bruising. Swelling. Trouble using the muscle. How is this treated? This condition is first treated with RICHARDSON therapy. This involves: Protecting your muscle from being injured again. Resting your injured muscle. Icing your injured muscle. Putting pressure (compression) on your injured muscle. This may be done with a splint or elastic bandage. Raising (elevating) your injured muscle. Your doctor may also recommend medicine for pain. Follow these instructions at home: If you have a splint that can be taken off: Wear the splint as told by your doctor. Take it off only as told by your doctor. Check the skin around the splint every day. Tell your doctor if you see problems. Loosen the splint if your fingers or toes: Tingle. Become numb. Turn cold and blue. Keep the splint clean. If the splint is not waterproof: Do not let it get wet. Cover it with a watertight covering when you take a bath or a shower. Managing pain, stiffness, and swelling If told, put ice on your injured area. To do this: If you have a removable splint, take it off as told by your doctor. Put ice in a plastic bag. Place a towel between your skin and the bag. Leave the ice on for 20 minutes, 2 3 times a day. Take off the ice if your skin turns bright red. This is very important. If you cannot feel pain, heat, or cold, you have a greater risk of damage to the area. Move your fingers or toes often. Raise the injured area above the level of your heart while you are sitting or lying down. Wear an elastic bandage as told by your doctor. Make sure it is not too tight. General instructions Take fssz-plu-bktemzw and prescription medicines only as told by your doctor. This may include: Medicines for pain and swelling that are taken by mouth or put on the skin. Medicines to help relax your muscles. Limit your activity. Rest your injured muscle as told by your doctor. Your doctor may say that gentle movements are okay. If physical therapy was prescribed, do exercises as told by your doctor. Do not put pressure on any part of the splint until it is fully hardened. This may take many hours. Do not smoke or use any products that contain nicotine or tobacco. If you need help quitting, ask your doctor. Ask your doctor when it is safe to drive if you have a splint. Keep all follow-up visits. How is this prevented? Warm up before you exercise. This helps to prevent more muscle strains. Contact a doctor if: You have more pain or swelling in the injured area. Get help right away if: You have any of these problems in your injured area: Numbness. Tingling. Less strength than normal. Summary A muscle strain is an injury that happens when a muscle is stretched beyond normal length. This condition is first treated with RICHARDSON therapy. This includes protecting, resting, icing, adding pressure, and raising your injury. Limit your activity. Rest your injured muscle as told by your doctor. Your doctor may say that gentle movements are okay. Warm up before you exercise. This helps to prevent more muscle strains. This information is not intended to replace advice given to you by your health care provider. Make sure you discuss any questions you have with your health care provider. Document Revised: 08/30/2021 Document Reviewed: 08/30/2021 Advanced Circulatory Patient Education 2021 [employer] Future Appointments Appointment Date: 10/07/2024 11:00:00 AM Scheduled Provider: Location: [id number] Appointment Type: Dental Visit Appointment Date: 10/15/2024 07:00:00 AM Scheduled Provider: LIANNA RIDER Location: [id number] Appointment Type: OPHT FTR Appointment Date: 10/15/2024 08:30:00 AM Scheduled Provider: LILI JAMES MD Location: [id number] Appointment Type: OPHT GRP Appointment Date: 11/19/2024 08:00:00 AM Scheduled Provider: JJ AREVALO OD, Optometry Location: [id number] Appointment Type: OPTO PROC Future Scheduled TestsLaboratoryLipid Panel 06/17/24 09/13/[address] [place] [address] Assessment and Plan Extracted from:Title : Optometry- CRS workup Author: JJ AREVALO OD, Optometry Date: 08/15/24 1. P reoperative state Patient appears to be good candidate for CRS. Discussed RBA of CRS with patient and explained procedures and performed all workup testing. Patient given a pplication to submit to surgical center of choice. Patient wanting to travel to [facility]. I nstructed to c ontact clinic a fter surgery to ensure profile, order meds if necessary, and schedule 1 month post-op. Patient acknowledges all, all questions answered. Instructed to remain out of CLs until surgery scheduled. If not a candidate at surgical site, maintain annual exams with optometry. Good ocular health today with dilation; pt educated on exam findings without further questions. ? 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 JJ AREVALO, Lt Col, OD [employer] Operator EMERSON Bosch Extracted from:Title: Virt Appt Author: TUAN VITAL APA-C Date: 06/17/24 1. 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 P ain in calf p reviously established with [facility] in [place] f or left calf pain DOI: 2016 per patient, had calf muscle tear, requires intermittent physical therapy 29yo male, SFS, calf muscle tear/Achilles tendon i njury, requires intermittent physical therapy. For continuity of care send to [facility] in [place], [place] A ddress: [address], [place] [address] . Eval/treat/follow. thanks. 3. A cute rupture of Achilles tendon 4. F ull examination performed p t requests lipid panel, brother has hyperlipidemia he will book virt appt t o review results Ordered: Lipid Panel 5. T inea pedis w ax/wane tinea pedis, ketoconazole controlls flare ups most of the time not currently in a flare up plan: OTC f oot powder, trial OTC terbinafine use until athletes foot resolves and then for 10 days after, d/c ketoconazole PRAP Disposition: continue with arming Aeromedical Disposition: n/a Tuan Vital, Capt, [facility], [facility] [place] [employer] Physician [employer] [facility] [place], [place] Orders: escitalopram(Lexapro 10 mg oral tablet), See Instructions, TAKE ONE AND ONE-HALF TABLETS BY MOUTH DAILY, # 135 tab(s), 3 total refill(s), Maintenance, TAKE ONE AND ONE-HALF TABLETS BY MOUTH DAILY, Pharmacy: [id number] [External Rx] Referral Request 2.0 - DoD Extracted from:Title: Optometry- CEE Author: JJ AREVALO OD Date: 06/07/24 1. M yopia, bilateral S pectacle rx released today. Final rx = [facility]. Below glasses ordered in SRTS. Discussed adaptation time to new lenses and proper wear. Discussed 2 pair requirement (DOD).? Measurements of anatomical facial characteristics and laboratory specifications were taken for glasses and final adjustment was made to the visual axes and anatomical topography of the patient at patients request upon delivery. OD: -2.50-0.51e819 OS: -2.25-1.70m530 pd:59 [id number] New Contact lens rx given today. Discussed proper wear/care of lenses. Instructed hand washing, not sleeping/showering/swimming in lenses and correct solutions. Discussed improper wear can lead to permanent vision loss. Replacement time: 2 weeks Acuvue Oasys for Astigmatism 8.6/14.5 OD: -2.50-0.06y187 OIS: -2.50-0.64i593 Patient appears to be a good candidate for corneal refractive surgery. Patient was emailed the application, edu to return the paperwork once (s)he obtains CC authorization and complete forms. - Once finished, p t edu to retun to [facility]. Angie perry will be scheduled with provider for completion of testing to include pentacam and dilation. Pt needs to be out of Cls x 2 weeks prior to returning. A ll questions answered to include [employer] specific process and r/b/a of surgery. Good ocular health today undilated; pt educated on exam findings without further questions. Recommend dilated eye exam a t CRS workup. 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 JJ AREVALO, Lt Col, OD [employer] [place], [place] 2. R egular astigmatism, bilateral Ordered: Determination Refractive State [id number]; 06/07/2024 10:27:00 LIME SLAKER ? Rx+Fitg C-Lens Supvj Crnl Lens Ou Xcpt Aphk [id number]; 06/07/2024 10:27:00 LIME SLAKER ? Fitting Spectacles Xcpt Aphakia Monofocal [id number]; 06/07/2024 10:27:00 LIME SLAKER ? Ophthalmological Medical Xm&Eval Compre New Pt 1/> Vst [id number]; 06/07/2024 10:27:00 LIME SLAKER End of Orders Extracted from:Title: virtual mrc2 mha/pha Author: [employer]GE CHILDERS APA-C Date: 01/08/24 1. 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 - SM states wakes every am and unable to eat firts thing in the am. Routine Health Maintenance: 1. Lipid profile: P rior lipids done. Date of lipid panel a nd LDL, HDL, Total = 07/06/2020, LDL: 69 HDL: 64 Total: 144 2. HgbA1c (Diabetes) screening: P rior HgbA1c done. Date of lab and HgbA1c= 11/30/2021, 4.9% 2. G eneralized anxiety disorder Lexapro 3. T innitus SM c/o ringing in the ears Laterality: B ilateral a lternates ears intermitently Able to perform occupational duties still: Y es Associated hearing loss N o Counseled on the importance of h earing protection and minimizing use of loud noise and/or headphones/ear buds Advised t o follow up in the clinic for further evaluation Advised to go to the ER if sudden worsening or any associated pain. Disposition: P FARAH Cleared PHA Type: Non-Fly Qualification: W orld Wide Qualified Profile: N one IMR Status: Green Waivers: None Arming Status: S ervice member arms Reviewed health services director's PHAQ and EHR for the past twelve months t o include r eported height, weight, current medical conditions and deployment related health problems, traumatic brain injury screening, m edications, allergies, i mmunizations, medical readiness laboratory tests and occupational health records. Completed screenings and provided patient education as appropriate. MHA completed in [facility] and copied to this record. Child Life Specialist is aware of services available ([phone], One source, STEVE, , Cinthia Jacob, , embedded squadron resources, e mergency room, first shirt or others in c wendi of command, etc) and how to contact them if needed. Child Life Specialist denies suicidal and homicidal ideation. Preventative services reviewed and discussed per age, race, and gender. Reviewed immunization history and assessed immunization status. Reviewed physical activity, s exual risk factors and previous STD testing date, including HIV. Reviewed readiness labs and occupational health examinations required. Compared medications reported by Child Life Specialist to active medication list in MH/JLV and any variances were reconciled. Time spent in pt care, counseling and reviewing chart was approximately 2 0min. Patient informed PHA complete and ASIMS updated. Any complaints or issues identified while conducting the PHA have been addressed and/or the health services director was instructed to return to their PCM for care. //SIGNED// MAJ Yves, LUPE, BSC Aerospace Medicine PA-C, BHS/MPAS [facility] Phase 2 Medical Readiness Cell Extracted from:Title: Ambulatory Patient Education Author: LASHAUN WALTER PA Date: 12/15/22 Gastrocnemius Tear (Calf Strain) Gastrocnemius tear is an injury to the calf muscle. This injury may include overstretching of the muscle or a partial or complete tear. This is a common sports injury. Calf muscle tears usually occur near the back of the knee. This often causes sudden pain and muscle weakness. What are the causes? This condition is caused by forceful stretching or strain on the calf muscle. This usually happens when you forcefully push off of your foot. It may also happen if you forcefully straighten your knee while your foot is flat on the ground. What increases the risk? The following factors may make you more likely to develop this condition: # Being male and older than age 40. # Playing sports that involve: Quick increases in speed and changes of direction, such as tennis and soccer. Jumping, such as basketball. Running, especially uphill or on uneven ground. Treatment (Summarized from UptoDate) Initial Treatment: Most calf strains can take up to 3 # 16 weeks to heal, depending on severity. Physical Therapy can help with the recovery. We can put in a referral for you if desired. At any time, follow up for any new/worsening symptoms or if not improving. Goal is rest until you can walk without a limp. This may be with crutches, walking boot, and/or heel lifts. Ice the area 4x day for 20 minutes until swelling subsides. Motrin (ibuprofen) 200-800mg 3x day with meals (max of 2400mg/day). Tylenol (acetaminophen) 325mg 1-2 tabs every 6 hours as needed on top (max 8 tabs daily). o These medications can be picked up at our pharmacy without a prescription as they are available from our over the counter supply. Compression sleeve worn over the calf. Can use an Miguel Angel wrap instead of a compression sleeve. (Start the Miguel Angel wrap from the ankle side and wrap upward to the knee) At One Week (or sooner depending on progress): After a week, if possible stop using crutches, switch to the heel lifts instead. Continue wearing compression sleeve/miguel angel wrap with activity, and continue icing 4x day for 20mins until swelling subsides. Once you can walk without a limp, start taking a walk 3x day for 10 minutes at a time. Once you can perform a heel raise (standing on your bridge of your foot) on both legs without pain, start doing that regularly o 5-8 reps with knees bent, then repeating this with the knees straight o Gradually increase to perform 3 sets of 15 reps with knees straight, and then repeat it with knees bent. Ideally avoid stretching exercises during recovery as they can exacerbate the injury. Gentle massage and gentle non-weight bearing range of motion is okay. At Three Weeks (or sooner depending on progress): Start eccentric heel drops as described in the below table. o Hang your heel over an edge (stair or step), and flex your foot down (so you are doing a heel lift and standing on the ball of your foot). Then slowly lower the heel until the heel is below the edge of the step. Raise yourself back up using the healthy foot or hand railings. Once you can do these heel drop exercises well (3 sets for 15 reps on one leg) you can begin an easy run every other day on a level surface for 15-20 mins max per session. o Additionally, can also do bicycle or stationary bicycle activity. At Six Weeks (or sooner depending on progress): Continue running for longer times and distances, but still on a level surface. o Recommend only adding 5 minutes increase in running time per session during a given week and no more than 1 additional running day each week. Ex) Week one: Ran 3x week for 20 minutes, Week two: Ran 4x week for 25 minutes. o Continue performing heel raise exercises as described in the table. Typically can be up to 8 # 12 weeks for return to full sports activity. Continue using compression sleeves and heel lifts during activity for the first 3 months after returning to the activity. Then can use it afterwards as needed. 1. Eccentric heel drop description a. Stand with the heel of the affected foot beyond the edge of the step or platform with the foot plantar flexed. Slowly lower the heel, bringing the foot into dorsiflexion. b. Perform the exercise both with the knee straight (gastrocnemius) and with the knee bent 45 degrees (soleus). c. Avoid concentric exercise by raising the foot back to the plantar flexed starting position using the unaffected foot, and hands if a railing is available. 2. Number of exercises a. Perform 3 sets of 15 repetitions with straight knees, then 3 sets of 15 repetitions with bent knees. b. Perform this cycle twice daily (180 drops/day). c. Continue the program 7 days per week for 12 to 24 weeks. 3. Exercise progression a. The exercises must be uncomfortable; when heel drops are no longer painful add weight by using a backpack, dumbbells, or a weight machine. Deven's intensive rehabilitation of Achilles tendinopathy Orthopedics Muscle Strain A muscle strain, or pulled muscle, happens when a muscle is stretched beyond its normal length. This can tear some muscle fibers and cause pain. Usually, it takes 1 2 weeks to heal from a muscle strain. Full healing normally takes 5 6 weeks. What are the causes? This condition is caused when a sudden force is placed on a muscle and stretches it too far. This can happen with a fall, while lifting, or during sports. What increases the risk? You are more likely to develop a muscle strain if you are an athlete or you do a lot of physical activity. What are the signs or symptoms? Pain. Tenderness. Bruising. Swelling. Trouble using the muscle. How is this treated? This condition is first treated with RICHARDSON therapy. This involves: Protecting your muscle from being injured again. Resting your injured muscle. Icing your injured muscle. Putting pressure (compression) on your injured muscle. This may be done with a splint or elastic bandage. Raising (elevating) your injured muscle. Your doctor may also recommend medicine for pain. Follow these instructions at home: If you have a splint that can be taken off: Wear the splint as told by your doctor. Take it off only as told by your doctor. Check the skin around the splint every day. Tell your doctor if you see problems. Loosen the splint if your fingers or toes: Tingle. Become numb. Turn cold and blue. Keep the splint clean. If the splint is not waterproof: Do not let it get wet. Cover it with a watertight covering when you take a bath or a shower. Managing pain, stiffness, and swelling If told, put ice on your injured area. To do this: If you have a removable splint, take it off as told by your doctor. Put ice in a plastic bag. Place a towel between your skin and the bag. Leave the ice on for 20 minutes, 2 3 times a day. Take off the ice if your skin turns bright red. This is very important. If you cannot feel pain, heat, or cold, you have a greater risk of damage to the area. Move your fingers or toes often. Raise the injured area above the level of your heart while you are sitting or lying down. Wear an elastic bandage as told by your doctor. Make sure it is not too tight. General instructions Take fvuh-dkx-nmckdnb and prescription medicines only as told by your doctor. This may include: Medicines for pain and swelling that are taken by mouth or put on the skin. Medicines to help relax your muscles. Limit your activity. Rest your injured muscle as told by your doctor. Your doctor may say that gentle movements are okay. If physical therapy was prescribed, do exercises as told by your doctor. Do not put pressure on any part of the splint until it is fully hardened. This may take many hours. Do not smoke or use any products that contain nicotine or tobacco. If you need help quitting, ask your doctor. Ask your doctor when it is safe to drive if you have a splint. Keep all follow-up visits. How is this prevented? Warm up before you exercise. This helps to prevent more muscle strains. Contact a doctor if: You have more pain or swelling in the injured area. Get help right away if: You have any of these problems in your injured area: Numbness. Tingling. Less strength than normal. Summary A muscle strain is an injury that happens when a muscle is stretched beyond normal length. This condition is first treated with RICHARDSON therapy. This includes protecting, resting, icing, adding pressure, and raising your injury. Limit your activity. Rest your injured muscle as told by your doctor. Your doctor may say that gentle movements are okay. Warm up before you exercise. This helps to prevent more muscle strains. This information is not intended to replace advice given to you by your health care provider. Make sure you discuss any questions you have with your health care provider. Document Revised: 08/30/2021 Document Reviewed: 08/30/2021 Advanced Circulatory Patient Education 2021 [employer] Future Appointments Appointment Date: 10/07/2024 11:00:00 AM Scheduled Provider: Location: [id number] Appointment Type: Dental Visit Appointment Date: 10/15/2024 07:00:00 AM Scheduled Provider: LIANNA RIDER Location: [id number] Appointment Type: OPHT FTR Appointment Date: 10/15/2024 08:30:00 AM Scheduled Provider: LILI JAMES MD Location: [id number] Appointment Type: OPHT GRP Appointment Date: 11/19/2024 08:00:00 AM Scheduled Provider: JJ AREVALO OD, Optometry Location: [id number] Appointment Type: OPTO PROC Future Scheduled TestsLaboratoryLipid Panel 06/17/24 09/13/2024 Unknown Organization Functional Status Combined list of recent functional and cognitive assessments recorded at [facility] (VA[facility]VA Functional Forrest Measurement (FIM) Scale: 1 = Total Assistance (Subject = 0% +), 2 = Maximal Assistance (Subject = 25% +), 3 = Moderate Assistance (Subject = 50% +), 4 = Minimal Assistance (Subject = 75% +), 5 = Supervision, 6 = Modified Forrest (Device), 7 = Complete Forrest (Timely, Safely). Assessment Date/Time Source Assessment Type Assessment Skill Assessment Score Assessment Details No data available for this section
--- OUTSIDE RECORDS SUMMARY | 2024-09-13 13:30 | XMS_ITS | Referral Summary ---
Author Organization [facility] [place] Address [address] [place] [id number] Care Team Providers Care Contour Path Tape Mill Operator Name Role Phone Julia Canales Primary Care Provider Allergies Active Allergy Reactions Criticality Noted Date Comments Penicillins Rash Medium 10/07/2021 Medications No known medications Active Problems No known active problems Social History Tobacco Use Types Packs/Day Years Used Date Smoking Tobacco: Never Sex and Gender Information Value Date Recorded Sex Assigned at Not on file Legal Sex Male 12:40 PM CDT Gender Identity Not on file Sexual Orientation Not on file 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 Industry Job 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 Job End 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 Not on file Not on file Not on file Last Filed Vital Signs Vital Sign Reading Time Taken Comments Blood Pressure - - Pulse - - Temperature - - Respiratory Rate - - Oxygen Saturation - - Inhaled Oxygen Concentration - - Weight 72.6 kg (160 lb) 12/24/2021 8:50 AM CDT Height 175.3 cm (5' 9 ) 12/24/2021 8:50 AM CDT Body Mass Index 23.63 12/24/2021 8:50 AM CDT Plan of Treatment Not on file Insurance [facility] CLAIMS [facility] CLAIM[facility] Care Teams Contour Path Tape Mill Operator Relationship Specialty Start Date End Date Julia Canales PA [address] [place] [address] PCP - General Physician Typing Element Machine Operator 10/04/21
--- OUTSIDE RECORDS SUMMARY | 2024-09-13 13:30 | XMS_ITS | Clinical Summary ---
Author Organization [facility] Address [facility] [place] [address] Care Team Providers Care Student Development Coordinator Name Role Phone Julia Canales Primary Care Provider Allergies Active Allergy Reactions Criticality Noted Date Comments Penicillins Rash Medium 10/07/2021 Medications No known medications Active Problems No known active problems Family History Medical History Relation Name Comments No Known Problems Father No Known Problems Mother Relation Name Status Comments Father Mother Social History Tobacco Use Types Packs/Day Years Used Date Smoking Tobacco: Never Sex and Gender Information Value Date Recorded Sex Assigned at Not on file Legal Sex Male 12:40 PM CDT Gender Identity Not on file Sexual Orientation Not on file 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 Industry Job Start 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 Job End 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 Not on file Not on file Not on file Obstetrics History Last Filed Vital Signs Vital Sign Reading Time Taken Comments Blood Pressure - - Pulse - - Temperature - - Respiratory Rate - - Oxygen Saturation - - Inhaled Oxygen Concentration - - Weight 72.6 kg (160 lb) 12/24/2021 8:50 AM CDT Height 175.3 cm (5' 9 ) 12/24/2021 8:50 AM CDT Body Mass Index 23.63 12/24/2021 8:50 AM CDT Plan of Treatment Health Maintenance Due Date Last Done Comments Depression Screening 1996 Hepatitis C Screening 1996 DTaP/Tdap/Td Vaccine (1 - Tdap) 02/16/2007 Varicella Vaccines (1 of 2 - 13+ 2-dose series) 02/16/2009 Hepatitis B Screening 02/16/2014 Regular Well Visit/Exam 18-64 02/16/2014 Influenza Vaccine (#1) 2024 HPV Vaccines Aged Out No longer eligi ble based on patient's age to complete this topic Pneumococcal vaccine <65 Aged Out No longer eligible based on patient's age to complete this topic Insurance CLAIMS CLAIMS Care Teams Student Development Coordinator Relationship Specialty Start Date End Date Julia Canales PA [address] [place] [address] PCP - General Physician Life Insurance Underwriter 10/04/21
--- OUTSIDE RECORDS SUMMARY | 2024-09-13 13:30 | XMS_ITS | Clinical Summary ---
Author Organization [facility] Address [address] [place] [id number] Care Team Providers Care Electric Brain Wave Equipment Mechanic Name Role Phone None, Provider MD Primary Care Provider Unavaila ble Social History Tobacco Use Types Packs/Day Years Used Date Smoking Tobacco: Never Assessed Sex and Gender Information Value Date Recorded Sex Assigned at Not on file Legal Sex Male 3:53 PM CDT Gender Identity Not on file Sexual Orientation Not on file Plan of Treatment Health Maintenance Due Date Last Done Comments Annual Physical 02/16/1999 Hepatitis C 02/16/2014 DTaP, Tdap and Td Vaccines ( 1 - Tdap) 02/16/2015 Hepatitis B Vaccines (1 of 3 - 19+ 3-dose series) 02/16/2015 COVID-19 Vaccine (2023-2 5 season) 2024 Influenza Adult (#1) 2024 HPV Vaccines Aged Out No longer eligi ble based on patient's age to complete this topic Meningococcal B Vaccine Aged Out No l onger eligible based on patient's age to complete this topic Meningococcal Vaccine Aged Out No mustapha kuldip eligible based on patient's age to complete this topic Pneumococcal Vaccine: Pediat rics (0 to 5 Years) and At-Risk Patients (6 to 64 Years) Aged Out No longer eligible b ased on patient's age to complete this topic RSV Immunizations Under 20 Months Aged Out No longer eligible based on patient's age to complete this topic Insurance Care Teams Electric Brain Wave Equipment Mechanic Relationship Specialty Start Date End Date None, Provider, PCP - General 09/23/21
--- NOTE | 2024-09-13 15:16 | ED_ITS ---
HPI - Extremity Injury (Upper) General Chief Complaint: Extremity Injury, Upper <Dominique Patricia PA-C - Last Filed: 09/13/24 15:21> Stated Complaint: redness/swelling left hand SP dog bite on 09/11 <Dominique Patricia PA-C - Last Filed: 09/13/24 15:21> Time Seen by Provider: 09/13/24 16:59 <Dominique Patricia PA-C - Last Filed: 09/13/24 15:21> Focused HPI: 29 y/o M Presents emergency department with concerns for an infected dog bite to his left thumb. Patient states his dog bit him on Monday. States his dog is been sick and a lot of pain and he was attempting to clean his dog and unfortunately was bit. He went to urgent care that day and was started on doxycycline and Flagyl for dog bite and had cleaned out. Patient states he is taking his medications as directed but woke up this morning with increased redness and pus draining from the puncture sites. He denies fever. States his dog is up-to-date on vaccines. Patient is also up-to-date on tetanus. GENERAL: Well-appearing, well-nourished, and in no acute distress. HEAD: Normocephalic, atraumatic. CHEST: No respiratory distress. EXT: Left thumb with a puncture wound to the base of the thumb, puncture wound to the proximal phalanx with purulent drainage and puncture wound with purulence to the proximal lateral nail fold. Surrounding erythema and warmth to the thumb extending to the 1st metacarpal. Thumb is held in full extension with no significant tenderness to the flexor tendon. Patient does have limited flexion due to pain. NEURO: ?Alert and oriented x3. Patient screened in triage and initial orders placed.? ?Additional care and disposition to be based upon?diagnostic testing and treatment. <Dominique Patricia PA-C - Last Filed: 09/13/24 15:21> History of Present Illness HPI narrative: I agree with the assessment and documentation of Dominique Patricia PA-C. < Peyton Tavarez APRN - Last Filed: 09/13/24 18:48> Related Data Allergies/Adverse Reactions: Allergies Allergy/AdvReac Type Severity Reaction Status Date / Time Penicillins Allergy Rash Verified 09/13/24 12:57 <Dominique Patricia PA-C - Last Filed: 09/13/24 15:21> Review of Systems 2 Review of Systems: All systems reviewed & are unremarkable except as noted in HPI and below <Peyton Tavarez APRN - Last Filed: 09/13/24 18:48> Exam 2 Narrative: GENERAL: Well appearing, well-nourished, non-toxic, in no acute distress. HEAD: Normocephalic, atraumatic. NECK: Supple. No adenopathy, no masses. RESPIRATORY: Airway patent, respirations nonlabored. Clear to auscultation bilaterally, no rales, rhonchi, wheezing. CARDIOVASCULAR: Regular rate and rhythm without murmurs, rubs, or gallops. Peripheral pulses 2+ and equal bilaterally. ABDOMINAL: Soft, nontender, nondistended, no hepatosplenomegaly. Normoactive BS. MUSCULOSKELETAL: Moves all extremities. Strength/ROM intact without gross deformities. GENERAL: Well-appearing, well-nourished, and in no acute distress. EXT: Left thumb with a puncture wound to the base of the thumb, puncture wound to the proximal phalanx with purulent drainage and puncture wound with purulence to the proximal lateral nail fold. Surrounding erythema and warmth to the thumb extending to the 1st metacarpal. Thumb is held in full extension with no significant tenderness to the flexor tendon. Patient does have limited flexion due to pain. NEURO: ?Alert and oriented x3. <Peyton Tavarez APRN - Last Filed: 09/13/24 18:48> Course DIGITAL MEDIA ANALYST/PA Physician Supervision i have seen the pt and agree with management <Prabhu Nathan MD - Last Filed: 09/13/24 18:51> Vital Signs Vital signs: Vital Signs Temperature 36.6 C 09/13/24 13:05 Pulse Rate 76 09/13/24 13:05 Respiratory Rate 18 09/13/24 13:05 Blood Pressure 118/76 09/13/24 13:05 Pulse Oximetry 100 09/13/24 13:05 Temperature 36.6 C 09/13/24 13:05 Pulse Rate 81 09/13/24 18:29 Respiratory Rate 14 09/13/24 18:29 Blood Pressure 126/88 09/13/24 18:29 Pulse Oximetry 100 09/13/24 18:29 Oxygen Delivery Room Air 09/13/24 16:02 <Dominique Patricia PA-C - Last Filed: 09/13/24 15:21> Vital Signs Temperature 36.6 C 09/13/24 13:05 Pulse Rate 76 09/13/24 13:05 Respiratory Rate 18 09/13/24 13:05 Blood Pressure 118/76 09/13/24 13:05 Pulse Oximetry 100 09/13/24 13:05 Temperature 36.6 C 09/13/24 13:05 Pulse Rate 81 09/13/24 18:29 Respiratory Rate 14 09/13/24 18:29 Blood Pressure 126/88 09/13/24 18:29 Pulse Oximetry 100 09/13/24 18:29 Oxygen Delivery Room Air 09/13/24 16:02 <Peyton Tavarez APRN - Last Filed: 09/13/24 18:48> Vital Signs Temperature 36.6 C 09/13/24 13:05 Pulse Rate 76 09/13/24 13:05 Respiratory Rate 18 09/13/24 13:05 Blood Pressure 118/76 09/13/24 13:05 Pulse Oximetry 100 09/13/24 13:05 Temperature 36.6 C 09/13/24 13:05 Pulse Rate 81 09/13/24 18:29 Respiratory Rate 14 09/13/24 18:29 Blood Pressure 126/88 09/13/24 18:29 Pulse Oximetry 100 09/13/24 18:29 Oxygen Delivery Room Air 09/13/24 16:02 <Prabhu Nathan MD - Last Filed: 09/13/24 18:51> MDM - Extremity Injury (Upper) MDM Narrative Medical decision making narrative: 29 y/o M Presents emergency department with concerns for an infected dog bite to his left thumb. Patient states his dog bit him on Monday. States his dog is been sick and a lot of pain and he was attempting to clean his dog and unfortunately was bit. He went to urgent care that day and was started on doxycycline and Flagyl for dog bite and had cleaned out. Patient states he is taking his medications as directed but woke up this morning with increased redness and pus draining from the puncture sites. He denies fever. States his dog is up-to-date on vaccines. Patient is also up-to-date on tetanus. Labs Ordered: CBC, CMP, CMP, blood cultures, INR, PTT, CXR, lactic acid Imaging Ordered: Left hand x-ray Medications Ordered: Dilaudid 0.5 mg IV, normal saline IV 1 L bolus, vancomycin IV Results: Left hand x-ray indicates Soft tissue swelling in the thenar and hypothenar eminences. Diagnosis: L hand soft tissue swelling and infection Consults: [id number]-spoke with [facility]. 1829- Spoke with Dr. Aguiar, plastics surgery at [facility], who advised pt be transferred there to the ER for a washout. He would also like pt to be started on Unasyn IV. Spoke with Dr. May, ER doctor, who was in agreement with acceptance of pt to the ER. Plan relayed to pt who is in agreement with plan for transfer via EMS. Patient Education/Shared MDM: <Peyton Tavarez APRN - Last Filed: 09/13/24 18:48> Differential Diagnosis Differential diagnosis: Likely other (infectious tenosynovitis, joint infection, L hand soft tissue swelling and infection, septic joint) <Peyton Tavarez APRN - Last Filed: 09/13/24 18:48> Lab Data Attestation: I reviewed the patient's lab results. <Peyton Tavarez APRN - Last Filed: 09/13/24 18:48> Result diagrams: 09/13/24 16:08 09/13/24 16:08 <Dominique Patricia PA-C - Last Filed: 09/13/24 15:21> Labs: Lab Results 09/13/24 09/13/24 Range/Units 16:08 18:13 WBC 7.9 (4.5-10.0) K/mm3 RBC 4.59 L (4.6-6.20) M/mm3 Hgb 14.6 (14.0-18.0) g/dL Hct 42.4 (42.0-52.0) % MCV 92.4 (80-100) fl MCH 31.8 (26-34) pg MCHC 34.4 (32-36) g/dl RDW 11.9 (11.5-14.5) % Plt Count 209 (150-375) k/mm3 MPV 10.7 H (7.4-10.4) fl Immature Gran % (Auto) 0.1 (0-0.5) % Neut % (Auto) 58.3 (45.5-73.1) % Lymph % (Auto) 31.0 (18.3-44.2) % [place] % (Auto) 8.4 (2.6-8.5) % Eos % (Auto) 1.7 (0-4.4) % Baso % (Auto) 0.5 (0.2-1.2) % Lymph # (Auto) 2.44 (0.9-3.2) K/mm3 [place] # (Auto) 0.7 H (0.1-0.6) K/mm3 Eos # (Auto) 0.1 (0-0.3) K/mm3 Baso # (Auto) 0.0 (0.0-0.1) K/mm3 Abs Immat Gran (auto) 0.01 (0.00-0.031) K/mm3 Absolute Neuts (auto) 4.6 (1.3-6.7) K/mm3 Absolute Nucleated RBC 0.000 (0.0-0.012) K/mm3 Nucleated RBC % 0.0 (0.0-0.2) % ESR 4 (0-20) mm/hr PT 14.9 H (11.1-14.7) Seconds INR 1.1 APTT 27.0 (22.3-36.8) Seconds Sodium 141 (137-145) mmol/L Potassium 3.5 (3.4-5.0) mmol/L Chloride 102 (98-107) mmol/L Carbon Dioxide 28 (22-30) mmol/L Anion Gap 11 (4-12) mmol/L BUN 14 D (9-20) mg/dL Creatinine 0.92 (0.7-1.3) mg/dL Estim Creat Clear Calc 102 ml/min Estimated GFR > 60 (59 - ) Glucose 93 (65-110) mg/dL Lactic Acid 1.0 (0.7-2.0) mmol/L Calcium 9.7 (8.4-10.2) mg/dL Total Bilirubin 0.8 (0.2-1.3) mg/dL AST 25 (17-59) U/L ALT 25 (6-50) U/L Alkaline Phosphatase 82 (38-126) U/L C-Reactive Protein 1.2 H (<1.0) mg/dL Total Protein 8.0 (6.3-8.2) g/dL Albumin 4.9 (3.5-5.1) g/dL <Dominique Patricia PA-C - Last Filed: 09/13/24 15:21> Lab Results 09/13/24 09/13/24 Range/Units 16:08 18:13 WBC 7.9 (4.5-10.0) K/mm3 RBC 4.59 L (4.6-6.20) M/mm3 Hgb 14.6 (14.0-18.0) g/dL Hct 42.4 (42.0-52.0) % MCV 92.4 (80-100) fl MCH 31.8 (26-34) pg MCHC 34.4 (32-36) g/dl RDW 11.9 (11.5-14.5) % Plt Count 209 (150-375) k/mm3 MPV 10.7 H (7.4-10.4) fl Immature Gran % (Auto) 0.1 (0-0.5) % Neut % (Auto) 58.3 (45.5-73.1) % Lymph % (Auto) 31.0 (18.3-44.2) % [place] % (Auto) 8.4 (2.6-8.5) % Eos % (Auto) 1.7 (0-4.4) % Baso % (Auto) 0.5 (0.2-1.2) % Lymph # (Auto) 2.44 (0.9-3.2) K/mm3 [place] # (Auto) 0.7 H (0.1-0.6) K/mm3 Eos # (Auto) 0.1 (0-0.3) K/mm3 Baso # (Auto) 0.0 (0.0-0.1) K/mm3 Abs Immat Gran (auto) 0.01 (0.00-0.031) K/mm3 Absolute Neuts (auto) 4.6 (1.3-6.7) K/mm3 Absolute Nucleated RBC 0.000 (0.0-0.012) K/mm3 Nucleated RBC % 0.0 (0.0-0.2) % ESR 4 (0-20) mm/hr PT 14.9 H (11.1-14.7) Seconds INR 1.1 APTT 27.0 (22.3-36.8) Seconds Sodium 141 (137-145) mmol/L Potassium 3.5 (3.4-5.0) mmol/L Chloride 102 (98-107) mmol/L Carbon Dioxide 28 (22-30) mmol/L Anion Gap 11 (4-12) mmol/L BUN 14 D (9-20) mg/dL Creatinine 0.92 (0.7-1.3) mg/dL Estim Creat Clear Calc 102 ml/min Estimated GFR > 60 (59 - ) Glucose 93 (65-110) mg/dL Lactic Acid 1.0 (0.7-2.0) mmol/L Calcium 9.7 (8.4-10.2) mg/dL Total Bilirubin 0.8 (0.2-1.3) mg/dL AST 25 (17-59) U/L ALT 25 (6-50) U/L Alkaline Phosphatase 82 (38-126) U/L C-Reactive Protein 1.2 H (<1.0) mg/dL Total Protein 8.0 (6.3-8.2) g/dL Albumin 4.9 (3.5-5.1) g/dL <Peyton Tavarez, BUNDLE COLLECTOR - Last Filed: 09/13/24 18:48> Lab Results 09/13/24 09/13/24 Range/Units 16:08 18:13 WBC 7.9 (4.5-10.0) K/mm3 RBC 4.59 L (4.6-6.20) M/mm3 Hgb 14.6 (14.0-18.0) g/dL Hct 42.4 (42.0-52.0) % MCV 92.4 (80-100) fl MCH 31.8 (26-34) pg MCHC 34.4 (32-36) g/dl RDW 11.9 (11.5-14.5) % Plt Count 209 (150-375) k/mm3 MPV 10.7 H (7.4-10.4) fl Immature Gran % (Auto) 0.1 (0-0.5) % Neut % (Auto) 58.3 (45.5-73.1) % Lymph % (Auto) 31.0 (18.3-44.2) % [place] % (Auto) 8.4 (2.6-8.5) % Eos % (Auto) 1.7 (0-4.4) % Baso % (Auto) 0.5 (0.2-1.2) % Lymph # (Auto) 2.44 (0.9-3.2) K/mm3 [place] # (Auto) 0.7 H (0.1-0.6) K/mm3 Eos # (Auto) 0.1 (0-0.3) K/mm3 Baso # (Auto) 0.0 (0.0-0.1) K/mm3 Abs Immat Gran (auto) 0.01 (0.00-0.031) K/mm3 Absolute Neuts (auto) 4.6 (1.3-6.7) K/mm3 Absolute Nucleated RBC 0.000 (0.0-0.012) K/mm3 Nucleated RBC % 0.0 (0.0-0.2) % ESR 4 (0-20) mm/hr PT 14.9 H (11.1-14.7) Seconds INR 1.1 APTT 27.0 (22.3-36.8) Seconds Sodium 141 (137-145) mmol/L Potassium 3.5 (3.4-5.0) mmol/L Chloride 102 (98-107) mmol/L Carbon Dioxide 28 (22-30) mmol/L Anion Gap 11 (4-12) mmol/L BUN 14 D (9-20) mg/dL Creatinine 0.92 (0.7-1.3) mg/dL Estim Creat Clear Calc 102 ml/min Estimated GFR > 60 (59 - ) Glucose 93 (65-110) mg/dL Lactic Acid 1.0 (0.7-2.0) mmol/L Calcium 9.7 (8.4-10.2) mg/dL Total Bilirubin 0.8 (0.2-1.3) mg/dL AST 25 (17-59) U/L ALT 25 (6-50) U/L Alkaline Phosphatase 82 (38-126) U/L C-Reactive Protein 1.2 H (<1.0) mg/dL Total Protein 8.0 (6.3-8.2) g/dL Albumin 4.9 (3.5-5.1) g/dL <Prabhu Nathan MD - Last Filed: 09/13/24 18:51> Imaging Data Attestation: I personally reviewed and interpreted this imaging study as follows: < Peyton Tavarez APRN - Last Filed: 09/13/24 18:48> Radiologist's impression: Impressions Hand X-Ray 09/13/24 15:45 IMPRESSION: No acute osseous abnormality left hand. <Peyton Tavarez APRN - Last Filed: 09/13/24 18:48> Discharge Plan Discharge Clinical Impression: Dog bite of left hand with infection, Infection of left hand, Left hand pain <Dominique Patricia PA-C - Last Filed: 09/13/24 15:21> Patient Disposition: Acute Care Hospital <Dominique Patricia PA-C - Last Filed: 09/13/24 15:21> Condition: Stable <Dominique Patricia PA-C - Last Filed: 09/13/24 15:21> Patient Language: Icelandic <Dominique Patricia PA-C - Last Filed: 09/13/24 15:21> Prescriptions: No Action ondansetron 4 mg tablet,disintegrating 4 mg PO Q6H PRN (Reason: nausea and vomiting) Qty: 14 0RF <Dominique Patricia PA-C - Last Filed: 09/13/24 15:21> Follow-up/Referrals: [place], [Primary Care Provider] - <Dominique Patricia PA-C - Last Filed: 09/13/24 15:21>
[2024-09-13 16:02] VITALS: BP 106/73; PULSE 63; RESP 12; O2SAT 100
[2024-09-13 16:14] LABS: Basophils Percent Auto 0.5 % (0.2-1.2); Eosinophils Absolute Auto 0.1 K/mm3 (0-0.3); Eosinophils Percent Auto 1.7 % (0-4.4); Hematocrit 42.4 % (42.0-52.0); Hemoglobin 14.6 g/dL (14.0-18.0); Immature Granulocyte Absolute 0.01 K/mm3 (0.00-0.031); Immature Granulocyte Percent A 0.1 % (0-0.5); Lymphocytes Absolute Auto 2.44 K/mm3 (0.9-3.2); Mean Corpuscular HGB Conc 34.4 g/dl (32-36); Mean Corpuscular Hemoglobin 31.8 pg (26-34); Mean Corpuscular Volume 92.4 fl (80-100); Mean Platelet Volume 10.7 fl (7.4-10.4); Monocytes Absolute Auto 0.7 K/mm3 (0.1-0.6); Monocytes Percent Auto 8.4 % (2.6-8.5); Neutrophils Absolute Auto 4.6 K/mm3 (1.3-6.7); Neutrophils Percent Auto 58.3 % (45.5-73.1); Platelet Count Result 209 k/mm3 (150-375); Red Blood Count 4.59 M/mm3 (4.6-6.20); Red Cell Distribution Width 11.9 % (11.5-14.5); White Blood Count 7.9 K/mm3 (4.5-10.0)
[2024-09-13 16:29] LABS: Alanine Aminotransferase 25 U/L (6-50); Albumin Level 4.9 g/dL (3.5-5.1); Alkaline Phosphatase 82 U/L (38-126); Anion Gap 11 mmol/L (4-12); Aspartate Amino Transferase 25 U/L (17-59); Bilirubin,Total 0.8 mg/dL (0.2-1.3); Blood Urea Nitrogen 14 mg/dL (9-20); CRP 1.2 mg/dL (<1.0); Calcium 9.7 mg/dL (8.4-10.2); Carbon Dioxide 28 mmol/L (22-30); Chloride 102 mmol/L (98-107); Estimated CRCL calculation 102 ml/min; Estimated Glomerular Filt Rate > 60; Glucose 93 mg/dL (65-110); Potassium 3.5 mmol/L (3.4-5.0); Sodium 141 mmol/L (137-145)
[2024-09-13 16:49] LABS: Erythrocyte Sedimentation Rate 4 mm/hr (0-20)
[2024-09-13 17:24] VITALS: BP 118/65; PULSE 77; RESP 15; O2SAT 100
--- OUTSIDE RECORDS SUMMARY | 2024-09-13 17:33 | XMS_ITS | Clinical Summary ---
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
--- OUTSIDE RECORDS SUMMARY | 2024-09-13 17:33 | XMS_ITS | Continuity of Care Document ---
Author Name [facility] Organization [facility] Care Team Providers Care Base Filler Operator Name Role Phone [facility] Unavailable Unavailable Problems Combined list of problems [...] by mouth) Discont inued 01/24/20242023 50.0 0055C-[address] [place], [place] [address]Trevor Tatum acetaminoph en 500 mg oral tablet 2 tab(s), Oral, every 6 hr, PRN pain or fever, # 100 tab(s), 0 total refill(s ), Acute, 03/25/24 12:00:00 AM CDT, Pharmacy : [facility] #[id number] Oral (given by mouth) Complet ed 03/25/20242023 100.0 0055C-3 [facility] DONNA Tatum Daily-Bing Men's Formula oral tablet Oral, Daily, 0 total refill(s ), Maintena nce Oral (given by mouth) Ordered 2023 7379[facility] escitalopra m 10 mg oral tablet TAKE [...] total refill(s ), Maintena nce, Pharmacy : [facility] Oral (given by mouth) Discont inued 03/11/2024 4 2023 135.0 0055C-[address] [place] [address] Rc escitalopra m 5 mg oral tablet 30 tab(s), 0 total refill(s ), Soft Stop Complet ed 12/15/20222022 0055C-[address] [place], [place] [address]Trevor Tatum ibuprofen 600 mg oral tablet 1 [...] Acute, 03/25/24 12:00:00 AM CDT, Pharmacy : [facility] #[id number] Oral (given by mouth) Complet ed 03/25/20242023 40.0 0055C-[address] DONNA Tatum Lexapro 10 mg oral tablet See Instruct ions, TAKE ONE AND ONE-HALF TABLETS BY MOUTH DAILY, # 135 tab(s), 3 total refill(s ), Maintena nce, Pharmacy : [facility] #[id number] Ordered 2023 135.0 0055C-[address] DONNA Tatum Lexapro 10 mg oral tablet See Instruct ions, TAKE ONE AND ONE-HALF TABLETS BY MOUTH DAILY, # 135 tab(s), 3 total refill(s ), Hard Stop, Pharmacy : [facility] Complet ed 06/17/2024 2023 135.0 0055C-3 [...] Site Reaction Lot Number CVX Code Drug Vibrator Operator Status Comments Source influenza, injectable, quadrivalent- pf [...] ory Pharmac y COVID Vaccine Moderna 2020 [id number] complet ed COVID Vaccine Moderna 11/14/20 Given Ambulat ory Pharmac y COVID Vaccine Moderna 2020 [id number] 207 complet ed COVID Vaccine Moderna 11/14/20 Given Ambulat ory Pharmac y COVID Vaccine Moderna 2020 [id number] 207 complet ed COVID Vaccine Moderna 10/17/20 Given Ambulat ory Pharmac y COVID Vaccine Moderna 2020 [id number] 207 complet ed COVID Vaccine Moderna 10/17/20 Given Ambulat ory Pharmac y tuberculin purified protein derivative 2020 96 complet ed tuberculi n purified protein derivativ e 07/27/20 Given Ambulat ory Pharmac y tuberculin purified protein derivative 2020 96 complet ed tuberculi n purified protein derivativ e 07/27/20 Given Ambulat ory Pharmac y tuberculin purified protein derivative 2020 [id number] 96 complet ed tuberculi n purified protein derivativ e 07/24/20 Given Ambulat ory Pharmac y tuberculin purified protein derivative 2020 SAMANTHAMROMP ALSKI [id number] 96 complet ed Result Comment: Route: Unknown Manufactu rer: OTH ([facility]) 0055C-3 [facility] tuberculin purified protein derivative 2020 [id number] 96 sanofi pasteur complet ed tuberculi n purified protein derivativ e 07/06/20 Given Ambulat ory Pharmac y tuberculin purified protein derivative 2020 [id number] 96 sanofi pasteur complet ed tuberculi n purified protein derivativ e 07/06/20 Given Ambulat ory Pharmac y influenza virus vaccine, inactivated 2019 [id number] 88 Seqirus complet ed influenza virus vaccine, inactivat ed 04/24/20 Given Ambulat ory Pharmac y influenza virus vaccine, inactivated 2019 [id number] 88 Seqirus complet ed influenza virus vaccine, inactivat ed 04/24/20 Given Ambulat ory Pharmac y influenza, injectable, quadrivalent- pf 2018 [id number] 150 Seqirus complet ed influenza , injectabl e, quadrival ent-pf 04/10/19 Given Ambulat ory Pharmac y influenza, injectable, quadrivalent- pf 2018 [id number] 150 Seqirus complet ed influenza , injectabl [...] Ambulat ory Pharmac y anthrax vaccine 2017 [id number] 24 Emergent Biosolutions complet ed anthrax vaccine 03/14/18 Given Ambulat ory Pharmac y anthrax vaccine 2017 [id number] 24 [employer] complet ed anthrax vaccine 03/14/18 Given Ambulat ory Pharmac y anthrax vaccine 2017 [id number] 24 Emergent [employer]olutions complet ed anthrax vaccine 10/05/17 Given Ambulat ory Pharmac y anthrax vaccine 2017 [id number] 24 Emergent [employer] complet ed anthrax vaccine [...] y Human Papillomaviru s 9-valent vaccine 2016 [id number] 165 [employer] complet ed Human Papilloma virus 9-valent vaccine 11/15/16 Given Ambulat ory Pharmac y Human Papillomaviru s 9-valent vaccine 2016 [id number] 165 S[employer] complet ed Human Papilloma [...] vac 11/11/16 Given Ambulat ory Pharmac y Ivorian Encephalitis IM 2016 [id number] 134 Valneva complet ed Ivorian Encephali tis IM 11/11/16 Given Ambulat ory Pharmac y anthrax vaccine 2016 [id number] 24 Emergent [employer]olutions complet ed anthrax vaccine 11/11/16 Given Ambulat ory Pharmac y typhoid Vi capsular polysaccharid e vac 2016 [id number] 101 sanofi pasteur complet ed typhoid Vi capsular polysacch aride vac 11/11/16 Given Ambulat ory Pharmac y anthrax vaccine 2016 [id number] 24 Emergent Biosolutions complet ed anthrax vaccine 11/11/16 Given Ambulat ory Pharmac y Ivorian Encephalitis IM 2016 [id number] 134 Valneva complet ed Ivorian Encephali tis IM 11/11/16 Given Ambulat ory [...] ory Pharmac y influenza, seasonal, injectable-pf 2014 [id number] 140 GlaxoSmithKli ne complet ed influenza , seasonal, injectabl e-pf 04/03/15 Given Ambulat ory Pharmac y influenza, seasonal, injectable-pf 2014 [id number] 140 GlaxoSmithKli ne complet ed influenza , [...] ory Pharmac y meningococcal A,C,Y,W-135 (MCV4P) 2014 [id number] 114 sanofi pasteur complet ed meningoco ccal [...] ory Pharmac y adenovirus vaccine, live 2014 [id number] 7 143 Teva Pharmaceutica ls complet ed [...] ory Pharmac y adenovirus vaccine, live 2014 [id number] 7 143 Teva Pharmaceutica ls complet ed adenoviru s vaccine, live 11/27/14 Given Ambulat ory Pharmac y meningococcal A,C,Y,W-135 (MCV4P) 2014 [id number] 114 sanofi pasteur complet ed meningoco ccal A,C,Y,W-1 35 (MCV4P) 11/27/14 Given Ambulat ory Pharmac y tuberculin purified protein derivative 2014 [id number] 96 sanofi pasteur complet ed tuberculi n purified protein derivativ e 11/27/14 Given Ambulat ory Pharmac y tuberculin purified protein derivative 2014 [id number] 96 sanofi pasteur complet ed tuberculi n [...] and Prevention's HIV diagnostic algorithm. Refer to [facility] Lab Guide for additional information: [email or web address]. aspx Testing performed by [employer]. 5600A-U [facility] EPILAB Encounters Combined list of: 1) Encounters from Department of Veterans Affairs facilities going backup to the last 18 months, not all VA inpatient encounters are included; 2) Encounters from the Department of Defense facilities going backup to 280 months. Location Location Details Encounter Type Encounter Number Reason For Visit Attending Provider ADM Date DC Date Status [id number] Dis[facility] Disposition: Home or Self Care 5C[facility]3 [id number] [facility] Discharge Disposition: Home or Self Care 5C-3 [id number] Regular astigma tism, maxime al,Myovidal sanchez, maxime Ortiz LBNGHIA 06/07 Discharge Disposition: Home or Self Care [address] [place] [address] [facility] [id number] Pain in unspeci fied lower leg,Str ain of unspeci fied Jonathan s tendon, initial encount er,Enco unter for general adult medical examina tion without abnorma l finding s,Tinea pedis,G enerali zed anxiety disorde r,Pain in left lower leg,Uns pecifie d injury of left [place] s tendon, initial encount er [facility] Discharge Disposition: Home or Self Care [address] [place] [address] [facility] [id number] Encount er for other preproc edural examina tion JJ AVILA 08/15 Discharge Disposition: Home or Self Care [address] [place] [address] Procedures Combined list of: 1) Procedures from Department of Veterans Affairs facilities going [facility], not all [place] non-surgical procedures are included; 2) All procedures from the Department of Defense facilities. Procedure Procedure Type Code Date Perfomer Comments [facility] e Tonsillectomy and adenoidectomy; age 12 or over Tonsillectomy and adenoidectomy; age 12 or over [address] 06/26/2001 7379[facility] Social History Combined list of available smoking, tobacco, and other social history from Department of Defense and Veterans Affairs facilities. Social History Type Response Date Comment [facility] e Sex Representation Male 08/30/2022 Unknow n [...] of choice. Patient wanting to travel to [facility]. I nstructed to c ontact clinic [...] Fitness Assessment. JJ AREVALO, Lt Col, OD [employer] [place], [place] Extracted from:Title: Virt Appt Author: TUAN VITAL [...] ain in calf p reviously established with [facility] in [place] f or left calf pain DOI: 2016 per patient, had calf muscle tear, requires intermittent physical therapy 29yo male, SFS, calf muscle tear/Achilles tendon i njury, requires intermittent physical therapy. For continuity of care send to [facility] in [place], [place] A ddress: [address], [place] [address] . Eval/treat/follow. thanks. 3. A cute rupture [...] Tuan Vital, Capt, [employer], BS Aeromedical Physician Quality Assurance Representative [facility] [employer] [place], [place] Orders: escitalopram(Lexapro 10 mg oral tablet), See Instructions, TAKE ONE AND ONE-HALF TABLETS BY MOUTH DAILY, # 135 tab(s), 3 total refill(s), Maintenance, TAKE ONE AND ONE-HALF TABLETS BY MOUTH DAILY, Pharmacy: [facility] #[id number] [External Rx] Referral Request 2.0 - DoD [...] patient at patients request upon delivery. OD: -2.50-0.58w278 OS: -2.25-1.44u150 pd:59 [id number] New Contact lens rx given today. Discussed proper wear/care of lenses. Instructed hand washing, not sleeping/showering/swimming in lenses and correct solutions. Discussed improper wear can lead to permanent vision loss. Replacement time: 2 weeks Acuvue Oasys for Astigmatism 8.6/14.5 OD: -2.50-0.56j069 OIS: -2.50-0.75p725 Patient appears to be a good candidate for corneal refractive surgery. Patient was emailed the application, [facility] to return the paperwork once (s)he obtains [...] Fitness Assessment. JJ AREVALO, Lt Col, OD [employer], [place] 2. R egular astigmatism, bilateral Ordered: Determination Refractive State [id number]; 06/07/2024 10:27:00 AUDIOLOGY DIRECTOR ? Rx+Fitg C-Lens Supvj Crnl Lens Ou Xcpt Aphk [id number]; 06/07/2024 10:27:00 AUDIOLOGY DIRECTOR ? Fitting Spectacles Xcpt Aphakia Monofocal [id number]; 06/07/2024 10:27:00 AUDIOLOGY DIRECTOR ? Ophthalmological Medical Xm&Eval Compre New Pt 1/> Vst [id number]; 06/07/2024 10:27:00 AUDIOLOGY DIRECTOR End of Orders Extracted from:Title: virtual mrc2 mha/pha Author: SERGE CHILDERS APA-C Date: 01/08/24 1. 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 Completed screenings and provided patient education as appropriate. MHA completed in ASIMS and copied to this record. Supervisor Counseling And Guidance is aware of services available ([phone], One source, [facility], Market Superintendent, B , , embedded squadron resources, e mergency room, first shirt or others in [place]endi of command, etc) and how to contact them if needed. Supervisor Counseling And Guidance denies suicidal and homicidal ideation. Preventative services reviewed and discussed per age, race, and gender. Reviewed immunization history and assessed immunization status. Reviewed physical activity, s exual risk factors and previous STD testing date, including HIV. Reviewed readiness labs and occupational health examinations required. Compared medications reported by Supervisor Counseling And Guidance to active medication list in MHSG/JLV and any variances were reconciled. Time spent in pt care, counseling and reviewing chart was approximately 2 0min. Patient informed PHA complete and ASIMS updated. Any complaints or issues identified while conducting the PHA have been addressed and/or the hosted services analyst was instructed to return to their PCM for care. //SIGNED// MAJ Yves, [employer], BSC Aerospace Medicine PATrevorC, BHS/MPAS [facility] Phase 2 Medical Readiness Cell Extracted from:Title: [...] is not too tight. General instructions Take slhw-vqq-gdjslxm and prescription medicines only as told by [...] provider. Document Revised: 08/30/2021 Document Reviewed: 08/30/2021 Fl[employer]igm Patient Education 2021 Truffls. Future Appointments Appointment Date: 10/07/2024 11:00:00 AM Scheduled Provider: Location: 177-DENTAL Appointment Type: Dental Visit Appointment Date: 10/15/2024 07:00:00 AM Scheduled Provider: LIANNA RIDER Location: [id number] Appointment Type: OPHT FTR Appointment Date: 10/15/2024 08:30:00 AM Scheduled Provider: LILI JAMES MD Location: 7100O-BOIP-TDIS Appointment Type: OPHT GRP Appointment Date: 11/19/2024 08:00:00 AM Scheduled Provider: JJ AREVALO OD, Optometry Location: 3587D-TSPS-CN Appointment Type: OPTO PROC Future Scheduled TestsLaboratoryLipid Panel 06/17/24 09/13/2024 005-[facility] Joselo Assessment and Plan Extracted from:Title : Optometry- CRS workup Author: JJ AREVALO OD, Optometry Date: 08/15/24 1. P reoperative state Patient appears to be good candidate for CRS. Discussed RBA of CRS with patient and explained procedures and performed all workup testing. Patient given a pplication to submit to surgical center of choice. Patient wanting to travel to [facility]. I nstructed to c ontact clinic [...] the Fitness Assessment. JJ AREVALO, Col, OD [employer] [place], [place] Extracted from:Title: Virt Appt Author: TUAN VITAL [...] ain in calf p reviously established with [facility] in [place] f or left calf pain DOI: 2017 per patient, had calf muscle tear, requires intermittent physical therapy 29yo male, SFS, calf muscle tear/Achilles tendon i njury, requires intermittent physical therapy. For continuity of care send to [facility] in [place], [place] A ddress: [address], [place] [address] . Eval/treat/follow. thanks. 3. A cute rupture [...] arming Aeromedical Disposition: n/a Tuan Vital, Capt, [facility], [facility] Aeromedical Physician Quality Assurance Representative [facility] [place], [place] Orders: escitalopram(Lexapro 10 mg oral tablet), See Instructions, TAKE ONE AND ONE-HALF TABLETS BY MOUTH DAILY, # 135 tab(s), 3 total refill(s), Maintenance, TAKE ONE AND ONE-HALF TABLETS BY MOUTH DAILY, Pharmacy: [facility] #[id number] [External Rx] Referral Request 2.0 - DoD [...] patient at patients request upon delivery. OD: -2.50-0.09v271 OS: -2.25-1.73x579 pd:59 [id number] New Contact lens rx given today. Discussed proper wear/care of lenses. Instructed hand washing, not sleeping/showering/swimming in lenses and correct solutions. Discussed improper wear can lead to permanent vision loss. Replacement time: 2 weeks Acuvue Oasys for Astigmatism 8.6/14.5 OD: -2.50-0.62o651 OIS: -2.50-0.71s103 Patient appears to be a good candidate [...] Fitness Assessment. JJ AREVALO, Lt Col, OD [employer], [place] 2. R egular astigmatism, bilateral Ordered: Determination Refractive State [id number]; 06/07/2024 10:27:00 AUDIOLOGY DIRECTOR ? Rx+Fitg C-Lens Supvj Crnl Lens Ou Xcpt Aphk [id number]; 06/07/2024 10:27:00 AUDIOLOGY DIRECTOR ? Fitting Spectacles Xcpt Aphakia Monofocal [id number]; 06/07/2024 10:27:00 AUDIOLOGY DIRECTOR ? Ophthalmological Medical Xm&Eval Compre New Pt 1/> Vst [id number]; 06/07/2024 10:27:00 AUDIOLOGY DIRECTOR End of Orders Extracted from:Title: virtual mrc2 mha/pha Author: SERGE CHILDERS APA-C Date: 01/08/24 1. 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 Completed screenings and provided patient education as appropriate. MHA completed in ASIMS and copied to this record. Supervisor Counseling And Guidance is aware of services available ([phone], One source, [facility], Market Superintendent, B H, , embedded squadron resources, e mergency room, first shirt or others in [facility], etc) and how to contact them if needed. Supervisor Counseling And Guidance denies suicidal and homicidal ideation. Preventative services reviewed and discussed per age, race, and gender. Reviewed immunization history and assessed immunization status. Reviewed physical activity, s exual risk factors and previous STD testing date, including HIV. Reviewed readiness labs and occupational health examinations required. Compared medications reported by Supervisor Counseling And Guidance to active medication list in MHSG/JLV and any variances were reconciled. Time spent in pt care, counseling and reviewing chart was approximately 2 0min. Patient informed PHA complete and ASIMS updated. Any complaints or issues identified while conducting the PHA have been addressed and/or the hosted services analyst was instructed to return to their PCM for care. //SIGNED// MAJ Yves, LUPE, BSC Aerospace Medicine PAHenri, BHS/MPAS [facility] Phase 2 Medical Readiness Cell Extracted from:Title: [...] is not too tight. General instructions Take sclx-vlg-grkcgtc and prescription medicines only as told by [...] provider. Document Revised: 08/30/2021 Document Reviewed: 08/30/2021 Fluidigm Patient Education 2021 Truffls. Future Appointments Appointment Date: 10/07/2024 11:00:00 AM Scheduled Provider: Location: 177-DENTAL Appointment Type: Dental Visit Appointment Date: 10/15/2024 07:00:00 AM Scheduled Provider: LIANNA RIDER Location: 3471P-[id number] Appointment Type: OPHT FTR Appointment Date: 10/15/2024 08:30:00 AM Scheduled Provider: LILI JAMES MD Location: 2339I-[id number] Appointment Type: OPHT GRP Appointment Date: 11/19/2024 08:00:00 AM Scheduled Provider: JJ AREVALO OD, Optometry Location: 6084N-HPDA-AQ Appointment Type: OPTO PROC Future Scheduled TestsLaboratoryLipid Panel 06/17/24 09/13/[address] [place] [address] Assessment and Plan Extracted from:Title : Optometry- CRS workup Author: JJ AREVALO OD, Optometry Date: 08/15/24 1. P reoperative state Patient appears to be good candidate for CRS. Discussed RBA of CRS with patient and explained procedures and performed all workup testing. Patient given a pplication to submit to surgical center of choice. Patient wanting to travel to [facility]. I nstructed to c ontact clinic [...] Fitness Assessment. 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 For continuity of care send to [facility] in [place], [place] A ddress: [address], [place] [address] . Eval/treat/follow. thanks. 3. A cute rupture [...] arming Aeromedical Disposition: n/a Tuan Vital, Capt, [facility], [facility] Aeromedical Physician Quality Assurance Representative [facility] [place], [place] Orders: escitalopram(Lexapro 10 mg oral tablet), See Instructions, TAKE ONE AND ONE-HALF TABLETS BY MOUTH DAILY, # 135 tab(s), 3 total refill(s), Maintenance, TAKE ONE AND ONE-HALF TABLETS BY MOUTH DAILY, Pharmacy: [facility] #[id number] [External Rx] Referral Request 2.0 - DoD [...] patient at patients request upon delivery. OD: -2.50-0.02g623 OS: -2.25-1.52j480 pd:59 New Contact lens rx given today. Discussed proper wear/care of lenses. Instructed hand washing, not sleeping/showering/swimming in lenses and correct solutions. Discussed improper wear can lead to permanent vision loss. Replacement time: 2 weeks Acuvue Oasys for Astigmatism 8.6/14.5 OD: -2.50-0.29h120 OIS: -2.50-0.62m697 Patient appears to be a good candidate [...] Fitness Assessment. JJ AREVALO, Lt Col, OD [employer]stopper [employer] [place], [place] 2. R egular astigmatism, bilateral Ordered: Determination Refractive State [id number]; 06/07/2024 10:27:00 AUDIOLOGY DIRECTOR ? Rx+Fitg C-Lens Supvj Crnl Lens Ou Xcpt Aphk [id number]; 06/07/2024 10:27:00 AUDIOLOGY DIRECTOR ? Fitting Spectacles Xcpt Aphakia Monofocal [id number]; 06/07/2024 10:27:00 AUDIOLOGY DIRECTOR ? Ophthalmological Medical Xm&Eval Compre New Pt 1/> Vst [id number]; 06/07/2024 10:27:00 AUDIOLOGY DIRECTOR End of Orders Extracted from:Title: virtual mrc2 mha/pha Author: SERGE CHILDERS APA-C Date: 01/08/24 1. 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 Completed screenings and provided patient education as appropriate. MHA completed in [facility] and copied to this record. Supervisor Counseling And Guidance is aware of services available ([phone], One source, STEVE, , Cinthia Jacob, , embedded squadron resources, e mergency room, first shirt or others in c wendi of command, etc) and how to contact them if needed. Supervisor Counseling And Guidance denies suicidal and homicidal ideation. Preventative services reviewed and discussed per age, race, and gender. Reviewed immunization history and assessed immunization status. Reviewed physical activity, s exual risk factors and previous STD testing date, including HIV. Reviewed readiness labs and occupational health examinations required. Compared medications reported by Supervisor Counseling And Guidance to active medication list in MH/JLV and any variances were reconciled. Time spent in pt care, counseling and reviewing chart was approximately 2 0min. Patient informed PHA complete and ASIMS updated. Any complaints or issues identified while conducting the PHA have been addressed and/or the hosted services analyst was instructed to return to their PCM for care. //SIGNED// MAJ Yves, LUPE, BSC Aerospace Medicine PA-C, [facility] [facility] Phase 2 Medical Readiness Cell Extracted from:Title: [...] is not too tight. General instructions Take mzye-rci-dbknzkh and prescription medicines only as told by [...] provider. Document Revised: 08/30/2021 Document Reviewed: 08/30/2021 [employer] Patient Education 2021 [employer]. Future Appointments Appointment Date: 10/07/2024 11:00:00 AM Scheduled Provider: Location: [id number] Appointment Type: Dental Visit Appointment Date: 10/15/2024 07:00:00 AM Scheduled Provider: LIANNA RIDER Location: [id number] Appointment Type: OPHT FTR Appointment Date: 10/15/2024 08:30:00 AM Scheduled Provider: LILI JAMES MD Location: [id number] Appointment Type: OPHT GRP Appointment Date: 11/19/2024 08:00:00 AM Scheduled Provider: JJ AREVALO OD, Optometry Location: [id number] Appointment Type: OPTO PROC Future Scheduled TestsLaboratoryLipid Panel 06/17/24 09/13/2024 Unknown Organization Functional Status Combined list of recent functional and cognitive assessments recorded at [facility] [employer] [facility] Functional Wirt Measurement (FIM) Scale: 1 = Total Assistance (Subject = 0% +), 2 = Maximal Assistance (Subject = 25% +), 3 = Moderate Assistance (Subject = 50% +), 4 = Minimal Assistance (Subject = 75% +), 5 = Supervision, 6 = Modified Wirt (Device), 7 = Complete Wirt (Timely, Safely). Assessment Date/Time Source Assessment Type Assessment Skill Assessment Score Assessment Details No data available for this section
--- OUTSIDE RECORDS SUMMARY | 2024-09-13 17:33 | XMS_ITS | Clinical Summary ---
Author Organization [facility] Address [address] [place] [id number] Care Team Providers Care Wine Merchant Name Role Phone None, Provider MD Primary [...] to complete this topic Insurance Care Teams Wine Merchant Relationship Specialty Start Date End Date None, Provider, PCP - General 09/23/21
--- OUTSIDE RECORDS SUMMARY | 2024-09-13 17:33 | XMS_ITS | Referral Summary ---
Author Organization [facility] [place] Address [address] [place] [id number] Care Team Providers Care Paster Hat Lining Name Role Phone Julia Canales Primary Care [...] Plan of Treatment Not on file Insurance [facility] CLAIMS [facility] CLAIMS Care Teams Paster Hat Lining Relationship Specialty Start Date End Date Julia Canales PA [address] [place] [address] PCP - General Physician In Service Coordinator 10/04/21
--- OUTSIDE RECORDS SUMMARY | 2024-09-13 17:33 | XMS_ITS | Clinical Summary ---
Author Organization [facility] Address [facility] [place] [address] Care Team Providers Care Heat And Vent Aircraft Mechanic Name Role Phone Julia Canales Primary Care [...] this topic Insurance CLAIMS CLAIMS Care Teams Heat And Vent Aircraft Mechanic Relationship Specialty Start Date End Date Julia Canales PA [address] [place] [address] PCP - General Physician Field Application Engineer 10/04/21
[2024-09-13 18:29] VITALS: BP 126/88; PULSE 81; RESP 14; O2SAT 100
[2024-09-13] MEDS: SODIUM CHLORIDE 0.9% IV 1,000 ML 999 ML IV CONT (18:30)
[2024-09-13] MEDS: HYDROmorphone HCL INJ (*CRX) 1 MG/ML SYR 0.5 MG IV PUSH (18:31)
[2024-09-13 18:33] LABS: INR 1.1; Prothrombin Time 14.9 Seconds (11.1-14.7)
[2024-09-13] MEDS: VANCOMYCIN 2,000 MG/NS 500 ML 2,000 MG/500 ML BAG 250 MG IVPB (18:34)
--- NOTE | 2024-09-13 19:33 | PC.NURSE ---
This RN called report to [facility] and spoke with Elieser RN, all questions answered
[2024-09-13] MEDS: diphenhydrAMINE HCl INJ 50 MG/ML VIAL 25 MG IV PUSH (20:21)
[2024-09-13] MEDS: AMPICILLIN SULB 1.5 GM/NS 50ML 1.5 GM/50 ML VIAL IVPB (20:23)
--- NOTE | 2024-09-13 20:26 | PC.NURSE ---
EMS arrives for patient
--- NOTE | 2024-09-13 20:26 | PC.NURSE ---
When EMS arrived for patient there was approximately 50mL left of vancomycin to go. Notified EDP Hellen who advised to stop Vancomycin early and start ampicillin.
== END 2024-09-13 20:29 | disposition short-term general hospital (02) ==
PROVIDERS: Physician Assistant; Emergency Provider Registered Nurse
DX: S61.052A Open bite of left thumb without damage to nail, initial encounter (principal); L08.9 Local infection of the skin and subcutaneous tissue, unspecified; W54.0XXA Bitten by dog, initial encounter
CPT/HCPCS: 36415; 73130; 80053; 83605; 85025; 85610; 85652; 85730; 86140; 87040; 96365; 96366; 96367; 96375; 99285; J0295; J1171; J1200; J3370; J7030